=== PATIENT | male | born 1935 | race Caucasian/White ===

== ENCOUNTER → 2016-12-01 | Outpatient (CLI) | payer MEDICARE, OTHER ==
--- NOTE | 2016-12-02 07:38 | XCELERA REPORT ---
[address] [address] Lower Extremity Arterial Evaluation Name: JOSE C JUSTICE Age: 81 yrs Gender: Male : 1935 Patient Status: Outpatient Patient Location: Study Date: 12/01/2016 03:11 PM Procedure: A color flow and duplex scan of the lower extremity arteries was performed bilaterally with velocity and waveform anaylsis. Ankle brachial indicies performed. Reason For Study: ULCER Ordering Physician: DREW WINTER Performed By: Ti Red Measurements and Calculations Right Left FIREARMS MODEL MAKER PSV 105.3 107.5 cm/sec Prox PFA PSV -51.5 -65.0 cm/sec Dist SFA PSV -85.0 -78.6 cm/sec Prox Pop A PSV 94.3 85.9 cm/sec Dist XIMENA PSV 103.7 70.2 cm/sec Dist FORGE PRESS OPERATOR PSV 85.9 56.9 cm/sec Francisco Pedis PSV 102.6 80.8 cm/sec Right Side Arterial Evaluation Normal velocity, waveform and triphasic flow are present, from the Common Femoral artery down to the infrageniculate vessels. The ankle-brachial index was not obtained, non compresible. 0 % stenosis is noted. Left Side Arterial Evaluation Normal velocity, waveform and triphasic flow are present, from the Common Femoral artery down to the infrageniculate vessels. The ankle-brachial index was not obtained, non compresible. 0 % stenosis is noted. Interpretation Summary No hemodynamically significant lesions in the bilateral lower extremities, on duplex imaging, at rest. : DREW WINTER > Drew Winter
== END ==
LOC: SP 14:50
PROVIDERS: ATTEND Surgery
DX: L97.513 Non-pressure chronic ulcer of other part of right foot with necrosis of muscle (principal)
CPT/HCPCS: 93925

== ENCOUNTER 2017-04-23 05:20 | Day surgery (SDC) | payer MEDICARE, OTHER ==
[2017-04-21 12:20] LABS: ABSOLUTE BASOPHILS # (AUTO) 0.1 10^3/uL (0.0-0.2); ABSOLUTE EOSINOPHILS # (AUTO) 0.1 10^3/uL (0.0-0.6); ABSOLUTE LYMPHOCYTES (AUTO) 1.8 10^3/uL (0.5-4.7); ABSOLUTE MONOCYTES (AUTO) 0.5 10^3/uL (0.1-1.4); ABSOLUTE NEUT (AUTO) 4.9 10^3/uL (1.7-8.2); BASOPHILS % (AUTO) 1.3 % (0-2); EOSINOPHILS % (AUTO) 1.7 % (0-6); HEMATOCRIT 42.5 % (37.9-51.0); HGB HCT DIFFERENCE -0.5; LYMPHOCYTES % (AUTO) 24.5 % (13-45); MEAN CORPUSCULAR HEMOGLOBIN 28.4 pg (27.0-33.4); MEAN CORPUSCULAR VOLUME 86 fl (80-97); MONOCYTES % (AUTO) 6.6 % (3-13); RED BLOOD COUNT 4.93 10^6/uL (4.35-5.55); RED CELL DISTRIBUTION WIDTH 17.3 % (11.5-14.0); SEGMENTED NEUTROPHILS % (AUTO) 65.9 % (42-78); WHITE BLOOD COUNT 7.5 10^3/uL (4.0-10.5)
[2017-04-21 12:21] LABS: APPEARANCE,URINE CLEAR; BILIRUBIN,URINE NEGATIVE (NEGATIVE); GLUCOSE, URINE NEGATIVE (NEGATIVE); KETONES,URINE NEGATIVE (NEGATIVE); LEUKOCYTE ESTERASE,URINE NEGATIVE (NEGATIVE); NITRITE,URINE NEGATIVE (NEGATIVE); PROTEIN,URINE NEGATIVE (NEGATIVE); UROBILINOGEN,URINE NEGATIVE mg/dL (<2.0)
[2017-04-21 12:50] LABS: ANION GAP 15 (5-19); BLOOD UREA NITROGEN 25 mg/dL (7-20); CALCIUM 10.1 mg/dL (8.4-10.2); CARBON DIOXIDE 25 mmol/L (22-30); CHLORIDE 103 mmol/L (98-107); CREATININE RESULT 1.16 mg/dL (0.52-1.25); GLUCOSE 246 mg/dL (75-110); POTASSIUM 4.6 mmol/L (3.6-5.0)
--- NOTE | 2017-04-21 16:19 | EKG REPORT ---
SEVERITY:- ABNORMAL ECG - VENTRICULAR-PACED COMPLEXES LEFT ANTERIOR FASCICULAR BLOCK PROBABLE LEFT VENTRICULAR HYPERTROPHY : Confirmed by: Holly Byrnes MD 21-Apr-2017 16:19:04
[~2017-04-23 05:20] MED LIST: CEFAZOLIN 2 GM/D5W RTU 2 GM/50 ML RTUPB IV PRN; LACTATED RINGERS 1000 ML IV PRN; LIDOCAINE 0.5% INJ-PF (5 MG/ML) 50 ML SDV SUBCUT PRN
[2017-04-23 05:59] LABS: PARTIAL THROMBOPLASTIN TIME 33.5 SEC (23.5-35.8); PROTHROMBIN TIME 23.2 SEC (11.4-15.4)
--- NOTE | 2017-04-23 06:31 | RADIOLOGY REPORT (SQ) ---
EXAM DESCRIPTION: CHEST SINGLE VIEW COMPLETED DATE/TIME: 04/23/2017 6:18 am REASON FOR STUDY: surgery COMPARISON: 11/13/2016. EXAM PARAMETERS: NUMBER OF VIEWS: One view. TECHNIQUE: Single frontal radiographic view of the chest acquired. RADIATION DOSE: NA LIMITATIONS: None. FINDINGS: LUNGS AND PLEURA: Mild interstitial markings of the right lung base. Likely small calcifi ed granuloma of the right upper hemithorax. Stable. MEDIASTINUM AND HILAR STRUCTURES: No masses. Contour normal. HEART AND VASCULAR STRUCTURES: Mild enlargement of the cardiac silhouette. BONES: No acute findings. HARDWARE: Left subclavian cardiac stimulation device. Lower cervical hardware fusion. Metallic anch or of the right humeral head. OTHER: No other significant finding. IMPRESSION: No acute cardiopulmonary findings. TECHNICAL DOCUMENTATION: JOB ID: [id number]
[2017-04-23] MEDS ORDERED: BUPIVACAINE HCL 0.5%-EPI 1:200000 INJ/PF 30 ML VIAL ONE (06:53)
[2017-04-23] MEDS ORDERED: FENTANYL CITRATE INJ/PF 100 MCG/2 ML AMPUL ONE (07:19)
[2017-04-23] MEDS ORDERED: PROPOFOL INJ 200 MG/20 ML VIAL IV ONE (07:20)
[2017-04-23] MEDS ORDERED: MIDAZOLAM 2 MG/2 ML INJ ONE (07:20)
--- NOTE | 2017-04-23 08:01 | Operative Report ---
Operative Report DATE OF SURGERY: 04/23/17 PREOPERATIVE DIAGNOSIS: equinas contracture right ankle OPERATION: Right gastrocnemius recession SURGEON: MEÑO GAXIOLA ANESTHESIA: LMAC ESTIMATED BLOOD LOSS: Minimal PROCEDURE: Patient prone on the operating table the right lower extremities prepped and draped in a sterile fashion. At the junction of the middle and distal thirds of the calf the skin is infiltrated posteriorly with a combination of Marcaine, Xylocaine, and epinephrine. A 2-1/2 cm longitudinal incision was made and sharp dissection was carried incision down to the Colon of the gastrocsoleus complex. This was divided. The underlying tendinous portion of the gastroc is identified. Is transected using a 15 blade. The underlying muscle is intact. This results in a dorsiflexion with the bent at 90 sitting from 0 to approximately 20 of dorsiflexion. At this point the wound is irrigated. It is closed with interrupted Vicryl followed by nylon. A sterile dressing and a posterior plaster splint were applied. The plaster splint holding the ankle joint and 20 of dorsiflexion.
[2017-04-23] MEDS ORDERED: ACETAMINOPHEN 325 MG TABLET PO PRN (08:26)
[2017-04-23] MEDS ORDERED: ONDANSETRON 4 MG TAB.RAPDIS SL PRN (08:26)
[2017-04-23 10:51] VITALS: BP 110/67
[2017-04-23] MEDS ORDERED: ONDANSETRON HCL INJ/PF 4 MG/2 ML SDV ONE (12:01)
[2017-04-23] MEDS ORDERED: GLYCOPYRROLATE INJ 0.4 MG/2 ML VIAL ONE (12:01)
== END 2017-04-23 10:30 | disposition home or self-care (01) ==
LOC: OROUT 05:20
PROVIDERS: ATTEND Orthopaedic Surgery
PROC: 0LSN0ZZ Reposition Right Lower Leg Tendon, Open Approach (ICD-10-PCS; principal; 2017-04-23 07:30)
DX: L97.909 Non-pressure chronic ulcer of unspecified part of unspecified lower leg with unspecified severity (principal); M24.571 Contracture, right ankle; E78.00 Pure hypercholesterolemia, unspecified; I10 Essential (primary) hypertension; G62.9 Polyneuropathy, unspecified; I73.9 Peripheral vascular disease, unspecified; M17.11 Unilateral primary osteoarthritis, right knee; M19.90 Unspecified osteoarthritis, unspecified site; E66.9 Obesity, unspecified; Z79.01 Long term (current) use of anticoagulants; Z79.84 Long term (current) use of oral hypoglycemic drugs; Z79.891 Long term (current) use of opiate analgesic; Z86.14 Personal history of Methicillin resistant Staphylococcus aureus infection; Z68.29 Body mass index [BMI] 29.0-29.9, adult; Z96.653 Presence of artificial knee joint, bilateral
CPT/HCPCS: 93005; 86900; 86901; 36415 ×2; 86850; 82962; 85025; 85610; 85730; 80048; 81001; 71010; 93010; 27687; J2250; J3490; J2405; J2704; J0690; 1474; J3010

== ENCOUNTER → 2017-06-25 | Outpatient (CLI) | payer MEDICARE, OTHER ==
--- NOTE | 2017-06-25 16:03 | RADIOLOGY REPORT (SQ) ---
EXAM DESCRIPTION: FOOT RIGHT COMPLETE COMPLETED DATE/TIME: 06/25/2017 3:49 pm REASON FOR STUDY: NON PRESSURE ULCER R FOOT WITH FAT LAYER EXPOSED COMPARISON: 11/08/2016 NUMBER OF VIEWS: Three views. TECHNIQUE: AP, lateral and oblique radiographic images acquired of the right foot. LIMITATIONS: Images are limited secondary to overlying cast. FINDINGS: MINERALIZATION: There is diffuse osteopenia. The phalanges it difficult to evaluate due t o severe osteopenia. BONES: There is no conventional radiographic evidence of osteomyelitis. JOINTS: No effusions. SOFT TISSUES: No soft tissue swelling. No foreign body. OTHER: No other significant finding. IMPRESSION: Very limited study. No conventional radiographic evidence of osteomyelitis. TECHNICAL DOCUMENTATION: JOB ID: [id number] [employer]- All Rights Reserved
== END ==
LOC: RAD 15:17
PROVIDERS: ATTEND Preventive Medicine Undersea and Hyperbaric Medicine
DX: L97.512 Non-pressure chronic ulcer of other part of right foot with fat layer exposed (principal)

== ENCOUNTER → 2017-07-12 | Outpatient (CLI) | payer MEDICARE ==
--- NOTE | 2017-07-12 15:34 | RADIOLOGY REPORT (SQ) ---
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 RADIONUCLIDE AND DOSE: 22.0 millicuries Tc99m MDP. The route of agent administration: Intravenous. ADDITIONAL DRUGS AND DOSES: None. TECHNIQUE: Following injection of the radiopharmaceutical, serial blood flow images acquired. Equil ibrium blood pool images then acquired. Routine delayed images at 3 hour acquired of the areas of cl inical concern with additional focused images as needed. AREA OF INTEREST: Right foot LIMITATIONS: None. FINDINGS: VASCULAR FLOW IMAGES: Increased uptake right great toe. BLOOD POOL IMAGES: Increased uptake right great toe. BONES: Increased uptake right great toe. Milder increased uptake in the mid and hindfoot consistent with degenerative change. KIDNEYS: Kidneys not imaged. OTHER: No other significant finding. IMPRESSION: Positive 3 phase bone scan right great toe. COMMENT: Quality measure 147: Current bone scan is compared with any available plain radiographs, p rior bone scans, and CT/MRI. TECHNICAL DOCUMENTATION: JOB ID: [id number] [employer]- All Rights Reserved
== END ==
LOC: RAD 11:06
PROVIDERS: ATTEND Preventive Medicine Undersea and Hyperbaric Medicine
DX: E11.621 Type 2 diabetes mellitus with foot ulcer (principal); L97.514 Non-pressure chronic ulcer of other part of right foot with necrosis of bone
CPT/HCPCS: 78315; A9561; Q9969

== ENCOUNTER → 2017-07-15 | Day surgery (SDC) | payer MEDICARE, OTHER ==
[~2017-07-15] MED LIST changes: -CEFAZOLIN 2 GM/D5W RTU 2 GM/50 ML RTUPB IV PRN; -LACTATED RINGERS 1000 ML IV PRN; -LIDOCAINE 0.5% INJ-PF (5 MG/ML) 50 ML SDV SUBCUT PRN; +NORMAL SALINE 10 ML SDV (AFTER EACH USE) IV PRN; +NORMAL SALINE 10 ML SDV (SCHEDULED) IV SCH; +VANCOMYCIN HCL 1,000 MG in DEXTROSE 5%-WATER 250 ML IV ONE; +VANCOMYCIN HCL 1,000 MG in DEXTROSE 5%-WATER 250 ML IV SCH
[2017-07-15 11:57] VITALS: BP 125/71
--- NOTE | 2017-07-15 12:03 | RADIOLOGY REPORT (SQ) ---
EXAM DESCRIPTION: PICC INSERTION; U/S GUIDE FOR VASCULAR ACCESS; FLUORO/CV PLACEMENT COMPLETED DATE/TIME: 07/15/2017 11:37 am REASON FOR STUDY: ACUTE HEMATOGENOUS OSTEOMYELITIS, RIGHT ANKLE AND FOOT (M86.071) M89.071 ALGONEUR ODYSTROPHY, RIGHT ANKLE AND FOOT M86.071 ACUTE HEMATOGENOUS OSTEOMYELITIS, RIGHT ANKLE AND FO COMPARISON: AP chest 11/13/2016, 10/15/2010 FLUOROSCOPY TIME: 4 minutes 50 seconds 1 digital chest radiograph, 1 ultrasound image saved to PACS. TECHNIQUE: Fluoroscopic and ultrasound guided PICC placement. LIMITATIONS: None. PROCEDURE: After written consent and assessment were obtained, the patient was brought into the fluo roscopy room and place supine on the table. Ultrasound was used on the patient's right arm for PICC access. The right arm was prepped and draped in a sterile fashion along with the ultrasound probe. Th e entry site was anesthetized with 3.5 mL of 1% lidocaine. A 21 gauge 7 cm needle was advanced throug h the skin and into the basilic vein under live ultrasound guidance. An ultrasound image was saved t o PACS confirming access site. A .018 guide wire was then inserted through the needle and into the v enous system. The needle was the removed and an 11 blade scalpel was used to make a 1cm skin incision . A 5 fr peel-away sheath was advanced over the wire and into the venous system. A measurement was t hen made using the existing wire and live fluoroscopic guidance. The wire was then removed and the tr immed. The PICC was advanced through the peel-away sheath and into the venous system. The peel-away s malu was removed and the catheter was adhered to the patients arm with a stat lock. The catheter was then aspirated and flushed and a sterile bandage was placed over the access site. A fluoroscopic sp ot image was saved to PACS confirming the catheter tip within the superior vena cava. IMPRESSION: SUCCESSFUL PLACEMENT OF A 5 FR DUAL LUMEN 35 CM PICC IN THE RIGHT BASILIC VEIN. COMMENT: Patient medication list reviewed: Yes- Quality ID# 130:Eligible professional attests to doc umenting in the medical record they obtained, updated, or reviewed the patient's current medications. . Quality ID 145: Final reports for procedures using fluoroscopy that document radiation exposure quincy harlan, or exposure time and number of fluorographic images (if radiation exposure indices are not avail able) Quality ID #76: The patient was prepped and draped using maximum sterile barrier technique including cap, mask, sterile gown, sterile gloves, a large sterile sheet, hand hygiene, and 2% Chlorhexidine fo r cutaneous antisepsis. When ultrasound is used, sterile ultrasound techniques are followed requiring sterile gel and sterile probes. TECHNICAL DOCUMENTATION: JOB ID: [id number] [employer]- All Rights Reserved
== END ==
LOC: RAD 10:36
PROVIDERS: ATTEND Preventive Medicine Undersea and Hyperbaric Medicine
PROC: 05HB33Z Insertion of Infusion Device into Right Basilic Vein, Percutaneous Approach (ICD-10-PCS; principal; 2017-07-15)
DX: M89.071 Algoneurodystrophy, right ankle and foot (principal); M86.071 Acute hematogenous osteomyelitis, right ankle and foot
CPT/HCPCS: 96415; 96365; 36569; 77001; 76937; C1769; J7060; J3370; J1642

== ENCOUNTER → 2017-07-15 | Outpatient (CLI) | payer MEDICARE, OTHER ==
[2017-07-15 10:50] LABS: PROTHROMBIN TIME 24.1 SEC (11.4-15.4)
== END ==
LOC: OD 08:57
PROVIDERS: ATTEND Nurse Practitioner Family
DX: L97.514 Non-pressure chronic ulcer of other part of right foot with necrosis of bone (principal)
CPT/HCPCS: 36415; 85610

== ENCOUNTER → 2017-08-16 | Outpatient (CLI) | payer MEDICARE, OTHER ==
--- NOTE | 2017-08-16 18:03 | RADIOLOGY REPORT (SQ) ---
EXAM DESCRIPTION: FOOT RIGHT COMPLETE COMPLETED DATE/TIME: 08/16/2017 5:09 pm REASON FOR STUDY: NON-PRESSURE ULCER OF OTHER PART OF RIGHT FOOT L97.523 NON- PRS CHRONIC ULCER OTH PRT LEFT FOOT W NECROSIS O L97.222 NON-PRESSURE CHRONIC ULCER OF LEFT CALF W FAT LAYER L97.223 NON-PRESSURE CHRONIC ULCER OF LEFT CALF W NECROSIS O COMPARISON: 11/08/2016 NUMBER OF VIEWS: Three views. TECHNIQUE: AP, lateral and oblique radiographic images acquired of the right foot. LIMITATIONS: The foot is in some type of boot that obscures fine bone detail. FINDINGS: MINERALIZATION: Normal. BONES: No acute fracture or dislocation. No evidence of osteomyelitis. JOINTS: There is subluxation of the 1st metatarsal-phalangeal joint. SOFT TISSUES: No soft tissue swelling. No foreign body. OTHER: No other significant finding. IMPRESSION: Subluxation of the 1st metatarsal-phalangeal joint. There is no evidence of osteomyelitis. TECHNICAL DOCUMENTATION: JOB ID: [id number] [employer]- All Rights Reserved <Electronically signed by BURAK JONES MD in [place]> 08/16/17 1803 [facility]
== END ==
LOC: RAD 16:52
PROVIDERS: ATTEND Preventive Medicine Undersea and Hyperbaric Medicine
DX: E11.621 Type 2 diabetes mellitus with foot ulcer (principal); L97.514 Non-pressure chronic ulcer of other part of right foot with necrosis of bone

== ENCOUNTER 2017-09-11 12:31 | Emergency (ER) | payer MEDICARE, OTHER ==
--- NOTE | 2017-09-11 13:06 | ER Document Report ---
HPI - HPI Patient complains to provider of: Fall early this am Onset: This morning - Onset/Duration: Gradual Quality of pain: No pain Pain Level: 3 Context: 82-year-old male was trying to get off into the bed to go to the bathroom and did not have the boot for his right foot on that he supposed to wear so it slipped and caused him to fall and hit his right shoulder on the dresser. He did not hit his head. No dizziness loss of consciousness nausea or vomiting. Daughter lives next door and he did not want to be seen in the emergency room this morning he wanted to wait after he woke up again to see how it felt and they just brought him in to get an x-ray to make sure it was not broken due to decreased range of motion due to pain. He uses a walker. Lives with his . Associated Symptoms: None Exacerbated by: Movement Relieved by: Denies Similar symptoms previously: No - ROS ROS below otherwise negative: Yes Systems Reviewed and Negative: Yes All other systems reviewed and negative - REPRODUCTIVE Reproductive: DENIES: : - DERM Skin Color: Normal Past Medical History - General Information source: Patient - Social History Smoking Status: Never Smoker Frequency of alcohol use: None Drug Abuse: None Lives with: Spouse/Significant other Family History: Reviewed & Not Pertinent Patient has suicidal ideation: No Patient has homicidal ideation: No - Past Medical History Cardiac Medical History: Reports: Hx Atrial Fibrillation, Hx Hypercholesterolemia, Hx Hypertension Endocrine Medical History: Reports: Hx Diabetes Mellitus Type 2, Hx Hyperthyroidism Renal/ Medical History: Denies: Hx Peritoneal Dialysis Musculoskeltal Medical History: Reports Hx Arthritis - LUIS DANIEL. KNEES Skin Medical History: Reports Hx MRSA Past Surgical History: Reports: Hx Orthopedic Surgery - right knee replacement, Hx Pacemaker - PAPER ON CHART - Immunizations Hx Diphtheria, Pertussis, Tetanus Vaccination: - UNSURE Vertical Provider Document - CONSTITUTIONAL Agree With Documented VS: Yes Exam Limitations: No Limitations General Appearance: No Apparent Distress - INFECTION CONTROL TRAVEL OUTSIDE OF THE [place] IN LAST 30 DAYS: No - HEENT HEENT: Atraumatic, Normocephalic - NECK Neck: Supple - RESPIRATORY Respiratory: Breath Sounds Normal, No Respiratory Distress O2 Sat by Pulse Oximetry: 98 - CARDIOVASCULAR Cardiovascular: Regular Rate, Regular Rhythm - MUSCULOSKELETAL/EXTREMETIES Musculoskeletal/Extremeties: Tender - top of right shoulder at AC joint, anterior prox humerus tender, not dislocated on exam, increased pain with abduction. - NEURO Level of Consciousness: Awake, Alert, Appropriate Motor/Sensory: No Motor Deficit, No Sensory Deficit - DERM Integumentary: Warm Course - Re-evaluation Re-evalutation: 09/11/17 14:31 xray negative, wants a hydrocodone for pain. Here with daughter. - Vital Signs Vital signs: Temp Pulse Resp BP Pulse Ox 97.6 F 50 L 22 H 147/66 H 98 09/11/17 12:49 09/11/17 12:49 09/11/17 12:49 09/11/17 12:49 09/11/17 12:49 Discharge - Discharge Clinical Impression: right shoulder contusion Condition: Good Disposition: HOME, SELF-CARE Instructions: Contusion ([facility]), Oral Narcotic Medication ([facility]) Additional Instructions: pain medication as needed slow range of motion so you don't get frozen shoulder to er any concerns Prescriptions: Hydrocodone Bit/Acetaminophen [Hydrocodon-Acetaminophen 5-325] 1 each PO Q4HP PRN #15 tablet PRN Reason: Referrals: MEÑO GAXIOLA MD [ACTIVE STAFF] - Follow up as needed
--- NOTE | 2017-09-11 13:59 | RADIOLOGY REPORT (SQ) ---
EXAM DESCRIPTION: SHOULDER RIGHT 2 OR MORE VIEWS COMPLETED DATE/TIME: 09/11/2017 1:51 pm REASON FOR STUDY: fall right shoulder pain COMPARISON: None. NUMBER OF VIEWS: Three views. TECHNIQUE: Internal rotation, external rotation, and Y view images acquired of the right shoulder. LIMITATIONS: None. FINDINGS: MINERALIZATION: Normal. BONES: No acute fracture or dislocation. No worrisome bone lesions. JOINTS: No dislocation. VISUALIZED LUNGS AND RIBS: No pneumothorax. No rib fracture. SOFT TISSUES: No radiopaque foreign body. OTHER: Anchoring sutures in the humeral head. IMPRESSION: NEGATIVE STUDY OF THE RIGHT SHOULDER. NO RADIOGRAPHIC EVIDENCE OF ACUTE INJURY. TECHNICAL DOCUMENTATION: JOB ID: [id number] [employer]- All Rights Reserved
[2017-09-11] MEDS ORDERED: HYDROCODONE/ACETAMINOPHEN 5-325 MG TABLET PO ONE (14:27)
[2017-09-11 14:57] VITALS: BP 145/64
== END 2017-09-11 14:56 | disposition home or self-care (01) ==
LOC: ER 12:31
DX: S40.011A Contusion of right shoulder, initial encounter (principal); M25.511 Pain in right shoulder; W19.XXXA Unspecified fall, initial encounter; Y92.002 Bathroom of unspecified non-institutional (private) residence as the place of occurrence of the external cause
CPT/HCPCS: 99283; 73030; A9270

== ENCOUNTER → 2017-09-29 | Outpatient (CLI) | payer MEDICARE, OTHER ==
[2017-09-29 10:41] LABS: PROTHROMBIN TIME 36.9 SEC (11.4-15.4)
== END ==
LOC: OD 09:47
PROVIDERS: ATTEND Internal Medicine
DX: I48.91 Unspecified atrial fibrillation (principal); Z79.01 Long term (current) use of anticoagulants
CPT/HCPCS: 36415; 85610

== ENCOUNTER → 2017-10-13 | Outpatient (CLI) | payer MEDICARE, OTHER ==
[2017-10-13 12:01] LABS: PROTHROMBIN TIME 30.7 SEC (11.4-15.4)
== END ==
LOC: OD 10:20
PROVIDERS: ATTEND Internal Medicine
DX: I48.91 Unspecified atrial fibrillation (principal); Z79.01 Long term (current) use of anticoagulants
CPT/HCPCS: 36415; 85610

== ENCOUNTER 2017-10-26 11:13 | Emergency (ER) | payer MEDICARE, OTHER ==
--- NOTE | 2017-10-26 11:29 | ER Document Report ---
ED Medical Screen (RME) - General Chief Complaint: General Weakness Stated Complaint: WEAKNESS Time Seen by Provider: 10/26/17 11:25 Notes: 82-year-old male patient with diabetes was put on Levaquin and Septra on 2016. Since then he developed diarrhea and weakness. Last night about 1:30 in the morning he fell without injury but his complaint of increasing weakness. He reports that he has not been able to eat much recently. I have greeted and performed a rapid initial assessment of this patient. A comprehensive ED assessment and evaluation of the patient, analysis of test results and completion of the medical decision making process will be conducted by additional ED providers. TRAVEL OUTSIDE OF THE [place] IN LAST 30 DAYS: No - Related Data Allergies/Adverse Reactions: niacin [From Niaspan] Allergy (Mild, Verified 10/26/17 11:22) hotflashes lasting several hours Past Medical History - Social History Chew tobacco use (# tins/day): No Frequency of alcohol use: None Drug Abuse: None - Past Medical History Cardiac Medical History: Reports: Hx Atrial Fibrillation, Hx Hypercholesterolemia, Hx Hypertension Denies: Hx Coronary Artery Disease, Hx Heart Attack Pulmonary Medical History: Denies: Hx Asthma, Hx Bronchitis, Hx COPD, Hx Pneumonia Neurological Medical History: Denies: Hx Cerebrovascular Accident, Hx Seizures Endocrine Medical History: Reports: Hx Diabetes Mellitus Type 2, Hx Hyperthyroidism Renal/ Medical History: Denies: Hx Peritoneal Dialysis GI Medical History: Denies: Hx Hepatitis, Hx Hiatal Hernia, Hx Ulcer Musculoskeltal Medical History: Reports Hx Arthritis - LUIS DANIEL. KNEES Skin Medical History: Reports Hx MRSA Infectious Medical History: Denies: Hx Hepatitis Past Surgical History: Reports: Hx Orthopedic Surgery - right knee replacement, Hx Pacemaker - PAPER ON CHART. Denies: Hx Open Heart Surgery - Immunizations Hx Diphtheria, Pertussis, Tetanus Vaccination: - UNSURE Physical Exam - Vital signs Vitals: Temp Pulse Resp BP Pulse Ox 97.7 F 54 L 20 108/54 L 100 10/26/17 11:19 10/26/17 11:19 10/26/17 11:19 10/26/17 11:19 10/26/17 11:19 Course - Vital Signs Vital signs: Temp Pulse Resp BP Pulse Ox 97.7 F 54 L 20 108/54 L 100 10/26/17 11:19 10/26/17 11:19 10/26/17 11:19 10/26/17 11:19 10/26/17 11:19
[2017-10-26 12:03] LABS: ABSOLUTE EOSINOPHILS # (AUTO) 0.1 10^3/uL (0.0-0.6); ABSOLUTE LYMPHOCYTES (AUTO) 1.6 10^3/uL (0.5-4.7); ABSOLUTE MONOCYTES (AUTO) 0.5 10^3/uL (0.1-1.4); ABSOLUTE NEUT (AUTO) 5.3 10^3/uL (1.7-8.2); BASOPHILS % (AUTO) 0.4 % (0-2); EOSINOPHILS % (AUTO) 1.3 % (0-6); HEMATOCRIT 38.8 % (37.9-51.0); HEMOGLOBIN 13.1 g/dL (13.5-17.0); HGB HCT DIFFERENCE 0.5; LYMPHOCYTES % (AUTO) 21.2 % (13-45); MEAN CORPUSCULAR HEMOGLOBIN 28.5 pg (27.0-33.4); MEAN CORPUSCULAR HGB CONC 33.6 g/dL (32.0-36.0); MEAN CORPUSCULAR VOLUME 85 fl (80-97); MONOCYTES % (AUTO) 6.3 % (3-13); RED BLOOD COUNT 4.58 10^6/uL (4.35-5.55); RED CELL DISTRIBUTION WIDTH 16.9 % (11.5-14.0); SEGMENTED NEUTROPHILS % (AUTO) 70.8 % (42-78); WHITE BLOOD COUNT 7.5 10^3/uL (4.0-10.5)
[2017-10-26 12:06] LABS: PROTHROMBIN TIME 35.3 SEC (11.4-15.4)
[2017-10-26 12:25] LABS: ALANINE AMINOTRANSFERASE 38 U/L (21-72); ALBUMIN 4.1 g/dL (3.5-5.0); ALKALINE PHOSPHATASE 37 U/L (38-126); ANION GAP 14 (5-19); ASPARTATE AMINO TRANSFERASE 44 U/L (17-59); BILIRUBIN,DIRECT 0.5 mg/dL (0.0-0.4); BILIRUBIN,TOTAL 0.6 mg/dL (0.2-1.3); BLOOD UREA NITROGEN 36 mg/dL (7-20); CALCIUM 9.6 mg/dL (8.4-10.2); CARBON DIOXIDE 22 mmol/L (22-30); CHLORIDE 104 mmol/L (98-107); CREATININE RESULT 1.97 mg/dL (0.52-1.25); GLUCOSE 159 mg/dL (75-110); MAGNESIUM 2.2 mg/dL (1.6-2.3); POTASSIUM 4.5 mmol/L (3.6-5.0); SODIUM 139.7 mmol/L (137-145); TOTAL PROTEIN 7.2 g/dL (6.3-8.2)
[2017-10-26 14:53] LABS: APPEARANCE,URINE SLIGHTLY-CLOUDY; BILIRUBIN,URINE NEGATIVE (NEGATIVE); GLUCOSE, URINE NEGATIVE (NEGATIVE); KETONES,URINE NEGATIVE (NEGATIVE); LEUKOCYTE ESTERASE,URINE NEGATIVE (NEGATIVE); NITRITE,URINE NEGATIVE (NEGATIVE); PROTEIN,URINE NEGATIVE (NEGATIVE); URINE SPECIFIC GRAVITY 1.017; UROBILINOGEN,URINE NEGATIVE mg/dL (<2.0)
[2017-10-26] MEDS ORDERED: NORMAL SALINE 1000 ML 1,000 ML IV ONE (15:08)
--- NOTE | 2017-10-26 15:50 | RADIOLOGY REPORT (SQ) ---
EXAM DESCRIPTION: HAND RIGHT 3 VIEWS COMPLETED DATE/TIME: 10/26/2017 3:36 pm REASON FOR STUDY: fall COMPARISON: None. EXAM PARAMETERS: NUMBER OF VIEWS: Three views. TECHNIQUE: AP, lateral and oblique radiographic images acquired of the right hand. LIMITATIONS: None. FINDINGS: MINERALIZATION: Normal. BONES: No acute fracture or dislocation. No worrisome bone lesions. JOINTS: No effusions. SOFT TISSUES: Small metallic foreign body at the level of the metacarpophalangeal joint of the thumb. OTHER: No other significant finding. IMPRESSION: No acute posttraumatic changes. Age-appropriate osteoarthritic involvement. TECHNICAL DOCUMENTATION: JOB ID: [id number] [employer]- All Rights Reserved
--- NOTE | 2017-10-26 15:51 | RADIOLOGY REPORT (SQ) ---
EXAM DESCRIPTION: SHOULDER RIGHT 2 OR MORE VIEWS COMPLETED DATE/TIME: 10/26/2017 3:36 pm REASON FOR STUDY: fall COMPARISON: None. NUMBER OF VIEWS: Three views. TECHNIQUE: Internal rotation, external rotation, and Y view images acquired of the right shoulder. LIMITATIONS: None. FINDINGS: MINERALIZATION: Normal. BONES: No acute fracture or dislocation. No worrisome bone lesions. JOINTS: No dislocation. VISUALIZED LUNGS AND RIBS: No pneumothorax. No rib fracture. SOFT TISSUES: No radiopaque foreign body. OTHER: Hardware projected over the humeral head most likely related to repair of previous rotator cuf f tear. IMPRESSION: No acute posttraumatic changes. TECHNICAL DOCUMENTATION: JOB ID: [id number] [employer]- All Rights Reserved
--- NOTE | 2017-10-26 16:12 | ER Document Report ---
ED General - General Chief Complaint: General Weakness Stated Complaint: WEAKNESS Time Seen by Provider: 10/26/17 11:25 Information source: Patient, Relative - Patient's daughter TRAVEL OUTSIDE OF THE [place] IN LAST 30 DAYS: No - HPI Patient complains to provider of: Fall, weakness Onset: Yesterday Onset/Duration: Gradual Quality of pain: Sharp Severity: Mild Pain Level: 2 Context: Right shoulder Associated symptoms: Diarrhea, Weakness Exacerbated by: Denies Relieved by: Denies Similar symptoms previously: Yes Recently seen / treated by doctor: Yes - Placed on Levaquin and Bactrim week ago Notes: She is an 82-year-old male who presents emergency to department company by his daughter. Has had a cast to his right lower extremity for the past year. He has a ulcer that has been debrided on multiple occasions and every he has the cast removed the wound was debrided in a new cast placed. He states that recently he was placed on Levaquin and Bactrim and he developed diarrhea. Also had decreased appetite. Last evening he got up to go to the bathroom and he was dizzy and he fell landing on his left leg area and is back on the hardwood floor after slipping. Patient lives with his his daughter and her live next door. Patient sees Dr. Grullon, Dr. Bernard, Dr. Gambino. - Related Data Allergies/Adverse Reactions: niacin [From Niaspan] Allergy (Mild, Verified 10/26/17 11:22) hotflashes lasting several hours Past Medical History - General Information source: Patient, Relative - Patient's daughter - Social History Smoking Status: Never Smoker Chew tobacco use (# tins/day): No Frequency of alcohol use: None Drug Abuse: None Family History: Reviewed & Not Pertinent Patient has suicidal ideation: No Patient has homicidal ideation: No - Past Medical History Cardiac Medical History: Reports: Hx Atrial Fibrillation, Hx Hypercholesterolemia, Hx Hypertension Denies: Hx Coronary Artery Disease, Hx Heart Attack Pulmonary Medical History: Denies: Hx Asthma, Hx Bronchitis, Hx COPD, Hx Pneumonia Neurological Medical History: Denies: Hx Cerebrovascular Accident, Hx Seizures Endocrine Medical History: Reports: Hx Diabetes Mellitus Type 2, Hx Hyperthyroidism Renal/ Medical History: Denies: Hx Peritoneal Dialysis GI Medical History: Denies: Hx Hepatitis, Hx Hiatal Hernia, Hx Ulcer Musculoskeltal Medical History: Reports Hx Arthritis - LUIS DANIEL. KNEES Skin Medical History: Reports Hx MRSA Psychiatric Medical History: Reports: None Infectious Medical History: Denies: Hx Hepatitis Past Surgical History: Reports: Hx Orthopedic Surgery - right knee replacement, Hx Pacemaker - PAPER ON CHART. Denies: Hx Open Heart Surgery - Immunizations Hx Diphtheria, Pertussis, Tetanus Vaccination: - UNSURE Hx Pneumococcal Vaccination: 08/15/17 Review of Systems - Review of Systems Constitutional: Weakness EENT: No symptoms reported Cardiovascular: No symptoms reported Respiratory: No symptoms reported Gastrointestinal: Diarrhea Genitourinary: No symptoms reported Male Genitourinary: No symptoms reported Musculoskeletal: Other - Right shoulder pain right hand pain Skin: No symptoms reported Hematologic/Lymphatic: No symptoms reported Neurological/Psychological: No symptoms reported Physical Exam - Vital signs Vitals: Temp Pulse Resp BP Pulse Ox 97.7 F 54 L 20 108/54 L 100 10/26/17 11:19 10/26/17 11:19 10/26/17 11:19 10/26/17 11:19 10/26/17 11:19 - Notes Notes: PHYSICAL EXAMINATION: GENERAL: Well-appearing, well-nourished. Patient lying in bed no acute distress HEAD: Atraumatic, normocephalic. EYES: Pupils equal round and reactive to light, extraocular movements intact, sclera anicteric, conjunctiva are normal. ENT: Nares patent, oropharynx clear without exudates. Moist mucous membranes. NECK: Normal range of motion, supple without lymphadenopathy LUNGS: Breath sounds clear to auscultation bilaterally and equal. No wheezes rales or rhonchi. HEART: irRegular rate and rhythm ABDOMEN: Soft, nontender, nondistended abdomen. No guarding, no rebound. No masses appreciated. Musculoskeletal: Decreased range of motion right shoulder secondary to discomfort. Patient does have an old scar there although he denies prior surgery . no pitting or edema. No cyanosis. Right lower extremity in a boot up to midcalf NEUROLOGICAL: Cranial nerves grossly intact. Normal speech, normal gait. Normal sensory, motor exams PSYCH: Normal mood, normal affect. SKIN: Warm, Dry, normal turgor, no rashes or lesions noted. Healed scar right cheek where patient had a basal cell carcinoma removed via the Mohs procedure. Course - Re-evaluation Re-evalutation: 12/12/17 16:22 Orthostatics negative - Vital Signs Vital signs: Temp Pulse Resp BP Pulse Ox 97.7 F 50 L 20 145/66 H 100 10/26/17 11:19 10/26/17 16:14 10/26/17 11:19 10/26/17 16:14 10/26/17 11:19 - Laboratory Result Diagrams: 10/26/17 11:45 10/26/17 11:45 Laboratory results interpreted by me: 10/26/17 10/26/17 10/26/17 11:45 11:45 11:45 Hgb 13.1 L RDW 16.9 H PT 35.3 H BUN 36 H Creatinine 1.97 H Est GFR ( Amer) 39 L Est GFR (Non-Af Amer) 33 L Glucose 159 H Direct Bilirubin 0.5 H Alkaline Phosphatase 37 L Urine Ascorbic Acid 10/26/17 14:22 Hgb RDW PT BUN Creatinine Est GFR ( Amer) Est GFR (Non-Af Amer) Glucose Direct Bilirubin Alkaline Phosphatase Urine Ascorbic Acid 40 H - Diagnostic Test Radiology reviewed: Image reviewed, Reports reviewed Radiology results interpreted by me: 10/26/17 16:22 negative acute for right shoulder and right hand. +OA - EKG Interpretation by Me Additional EKG results interpreted by me: 10/26/17 16:39 EKG shows ventricular paced complexes at a rate of 54 Discharge - Discharge Clinical Impression: Dehydration, Anticoagulated on Coumadin, Diarrhea Condition: Stable Disposition: HOME, SELF-CARE Additional Instructions: Follow-up with your slate worker tomorrow as scheduled. Please bring the copy of the labs that we did today to show to your slate worker. Please increase your water intake as you are slightly dehydrated. Hold your 2.5 mg of Coumadin tonight. Call your doctor who prescribes this tomorrow to establish a follow-up plan. Referrals: ANDREEA CROWELL MD [Primary Care Provider] - Follow up in 3-5 days
[2017-10-26 17:25] VITALS: BP 127/75
--- NOTE | 2017-10-26 23:08 | EKG REPORT ---
SEVERITY:- ABNORMAL ECG - VENTRICULAR-PACED COMPLEXES FIRST DEGREE AV BLOCK IVCD, CONSIDER ATYPICAL RBBB : Confirmed by: Kentrell Vogel 26-Oct-2017 23:08:30
== END 2017-10-26 17:29 | disposition home or self-care (01) ==
LOC: ER 11:13
DX: E86.0 Dehydration (principal); R19.7 Diarrhea, unspecified; R53.1 Weakness; R63.0 Anorexia; M25.511 Pain in right shoulder; M79.641 Pain in right hand; E11.622 Type 2 diabetes mellitus with other skin ulcer; L97.919 Non-pressure chronic ulcer of unspecified part of right lower leg with unspecified severity; I10 Essential (primary) hypertension; I48.91 Unspecified atrial fibrillation; Z79.01 Long term (current) use of anticoagulants; Z98.890 Other specified postprocedural states; Z91.81 History of falling; Z88.8 Allergy status to other drugs, medicaments and biological substances; Z86.14 Personal history of Methicillin resistant Staphylococcus aureus infection; Z95.0 Presence of cardiac pacemaker; Z85.828 Personal history of other malignant neoplasm of skin
CPT/HCPCS: 93005; 99285; 96360; 36415; 80162; 83735; 85025; 85610; 80053; 81001; 84484; 73130; 73030; 93010; J7030

== ENCOUNTER → 2017-11-24 | Outpatient (CLI) | payer MEDICARE, OTHER ==
--- NOTE | 2017-11-24 16:59 | RADIOLOGY REPORT (SQ) ---
EXAM DESCRIPTION: FOOT RIGHT COMPLETE COMPLETED DATE/TIME: 11/24/2017 4:18 pm REASON FOR STUDY: L97.514 NON-PRS CHRONIC ULCER OTH PRT RIGHT FOOT W NECROSIS OF BONE L97.514 NON-P RS CHRONIC ULCER OTH PRT RIGHT FOOT W NECROSIS COMPARISON: 08/16/2017 NUMBER OF VIEWS: Three views. TECHNIQUE: AP, lateral and oblique without weight bearing radiographic images acquired of the right foot. LIMITATIONS: Cast is in place which limits bony detail. FINDINGS: MINERALIZATION: Unchanged. There is mild osteopenia. BONES: There is subluxation of the 1st metatarsal phalangeal joint. This is unchanged. No significan t osteophytes. JOINTS: No erosions. No bakari-articular osteopenia. No chondrocalcinosis. SOFT TISSUES: No swelling. No calcifications. OTHER: No conventional radiographic evidence of osteomyelitis. IMPRESSION: Stable right foot. Cast limits bone detail. There is subluxation of the 1st metatarsal phalangeal joint. TECHNICAL DOCUMENTATION: JOB ID: [id number] [employer]- All Rights Reserved
== END ==
LOC: RAD 15:06
PROVIDERS: ATTEND Preventive Medicine Undersea and Hyperbaric Medicine
DX: L97.514 Non-pressure chronic ulcer of other part of right foot with necrosis of bone (principal)

== ENCOUNTER → 2017-12-15 | Outpatient (CLI) | payer MEDICARE, OTHER ==
[2017-12-15 11:17] LABS: HEMATOCRIT 39.1 % (37.9-51.0); MEAN CORPUSCULAR HEMOGLOBIN 28.2 pg (27.0-33.4); MEAN CORPUSCULAR HGB CONC 33.2 g/dL (32.0-36.0); MEAN CORPUSCULAR VOLUME 85 fl (80-97); PLATELET COUNT 166 10^3/uL (150-450); RED CELL DISTRIBUTION WIDTH 16.4 % (11.5-14.0)
[2017-12-15 11:57] LABS: ERYTHROCYTE SEDIMENTATION RATE 12 mm/hr (0-20)
[2017-12-15 11:59] LABS: ALANINE AMINOTRANSFERASE 39 U/L (21-72); ALBUMIN 4.1 g/dL (3.5-5.0); ALKALINE PHOSPHATASE 40 U/L (38-126); ANION GAP 11 (5-19); ASPARTATE AMINO TRANSFERASE 69 U/L (17-59); BILIRUBIN,DIRECT 0.6 mg/dL (0.0-0.4); BILIRUBIN,TOTAL 0.8 mg/dL (0.2-1.3); BLOOD UREA NITROGEN 26 mg/dL (7-20); C-REACTIVE PROTEIN 5.9 mg/L (<10.0); CALCIUM 9.8 mg/dL (8.4-10.2); CARBON DIOXIDE 26 mmol/L (22-30); CHLORIDE 106 mmol/L (98-107); GLUCOSE 139 mg/dL (75-110); POTASSIUM 4.7 mmol/L (3.6-5.0)
== END ==
LOC: OD 09:31
PROVIDERS: ATTEND Preventive Medicine Undersea and Hyperbaric Medicine
DX: E11.621 Type 2 diabetes mellitus with foot ulcer (principal); L97.514 Non-pressure chronic ulcer of other part of right foot with necrosis of bone
CPT/HCPCS: 36415; 80053; 85027; 85652; 86140

== ENCOUNTER → 2018-03-02 | Outpatient (CLI) | payer MEDICARE, OTHER ==
--- NOTE | 2018-03-02 12:36 | RADIOLOGY REPORT (SQ) ---
EXAM DESCRIPTION: FOOT RIGHT COMPLETE COMPLETED DATE/TIME: 03/02/2018 12:19 pm REASON FOR STUDY: E11.621 TYPE 2 DIABETES MELLITUS WITH FOOT ULCER COMPARISON: 11/24/2017. NUMBER OF VIEWS: Three views right foot. LIMITATIONS: Significantly limiting osteopenia. FINDINGS: Diffuse patchy osteopenia throughout the foot. No displaced fracture. On the lateral vie w, note is made of flattening and erosion of 1 of the inferior metatarsal heads. This is likely the great toe, likely chronic but difficult to further localize or compared to the priors. No other area s of bone erosion. OTHER: No other significant finding. IMPRESSION: As above. TECHNICAL DOCUMENTATION: JOB ID: [id number] Reading location - IP/workstation name: [email or web address]
[2018-03-02 13:03] LABS: ABSOLUTE BASOPHILS # (AUTO) 0.1 10^3/uL (0.0-0.2); ABSOLUTE EOSINOPHILS # (AUTO) 0.2 10^3/uL (0.0-0.6); ABSOLUTE LYMPHOCYTES (AUTO) 1.7 10^3/uL (0.5-4.7); ABSOLUTE MONOCYTES (AUTO) 0.5 10^3/uL (0.1-1.4); ABSOLUTE NEUT (AUTO) 5.6 10^3/uL (1.7-8.2); BASOPHILS % (AUTO) 1.1 % (0-2); EOSINOPHILS % (AUTO) 2.2 % (0-6); HEMATOCRIT 39.4 % (37.9-51.0); HEMOGLOBIN 12.8 g/dL (13.5-17.0); LYMPHOCYTES % (AUTO) 20.8 % (13-45); MEAN CORPUSCULAR HEMOGLOBIN 27.6 pg (27.0-33.4); MEAN CORPUSCULAR HGB CONC 32.6 g/dL (32.0-36.0); MEAN CORPUSCULAR VOLUME 85 fl (80-97); MONOCYTES % (AUTO) 6.1 % (3-13); PLATELET COUNT 188 10^3/uL (150-450); RED BLOOD COUNT 4.65 10^6/uL (4.35-5.55); RED CELL DISTRIBUTION WIDTH 16.3 % (11.5-14.0); SEGMENTED NEUTROPHILS % (AUTO) 69.8 % (42-78); TOTAL CELLS COUNTED % (AUTO) 100 %
[2018-03-02 13:26] LABS: ALBUMIN 3.9 g/dL (3.5-5.0); ANION GAP 12 (5-19); CARBON DIOXIDE 26 mmol/L (22-30); CHLORIDE 108 mmol/L (98-107); GLUCOSE 156 mg/dL (75-110); POTASSIUM 4.4 mmol/L (3.6-5.0); SODIUM 145.6 mmol/L (137-145); TOTAL PROTEIN 6.6 g/dL (6.3-8.2)
[2018-03-02 13:31] LABS: ALANINE AMINOTRANSFERASE 33 U/L (21-72); ALKALINE PHOSPHATASE 32 U/L (38-126); ASPARTATE AMINO TRANSFERASE 31 U/L (17-59); BILIRUBIN,DIRECT 0.4 mg/dL (0.0-0.4); BILIRUBIN,TOTAL 0.7 mg/dL (0.2-1.3); BLOOD UREA NITROGEN 27 mg/dL (7-20); CALCIUM 9.8 mg/dL (8.4-10.2)
[2018-03-02 13:34] LABS: C-REACTIVE PROTEIN < 5.0 mg/L (<10.0)
[2018-03-02 13:40] LABS: ERYTHROCYTE SEDIMENTATION RATE 13 mm/hr (0-20)
== END ==
LOC: RAD 11:58
PROVIDERS: ATTEND Preventive Medicine Undersea and Hyperbaric Medicine
DX: E11.621 Type 2 diabetes mellitus with foot ulcer (principal); L97.512 Non-pressure chronic ulcer of other part of right foot with fat layer exposed
CPT/HCPCS: 36415; 80053; 83036; 85025; 85652; 86140

== ENCOUNTER 2019-07-19 14:47 | Emergency (ER) | payer MEDICARE, OTHER ==
--- NOTE | 2019-07-19 15:21 | ER Document Report ---
ED General - General Chief Complaint: Fall Stated Complaint: FALL,BODY PAIN Time Seen by Provider: 07/19/19 15:10 Primary Care Provider: ANDREEA CROWELL MD [Primary Care Provider] - Follow up as needed Notes: 84-year-old male who is walking at home and fell backwards from a standing position and hit the back of his head. Denies vomiting, denies loss of consciousness, denies numbness, tingling, confusion. Admits pain in his neck. Patient does take Coumadin, he is not sure exactly why. Patient also takes digoxin. TRAVEL OUTSIDE OF THE [place] IN LAST 30 DAYS: No - Related Data Allergies/Adverse Reactions: niacin [From Niaspan] Allergy (Mild, Verified 10/26/17 11:22) hotflashes lasting several hours Past Medical History - General Information source: Patient - Social History Smoking Status: Never Smoker Chew tobacco use (# tins/day): No Frequency of alcohol use: None Drug Abuse: None Family History: Reviewed & Not Pertinent Patient has suicidal ideation: No Patient has homicidal ideation: No - Past Medical History Cardiac Medical History: Reports: Hx Atrial Fibrillation, Hx Hypercholesterolemia, Hx Hypertension Denies: Hx Coronary Artery Disease, Hx Heart Attack Pulmonary Medical History: Denies: Hx Asthma, Hx Bronchitis, Hx COPD, Hx Pneumonia Neurological Medical History: Denies: Hx Cerebrovascular Accident, Hx Seizures Endocrine Medical History: Reports: Hx Diabetes Mellitus Type 2, Hx Hyperthyroidism Renal/ Medical History: Denies: Hx Peritoneal Dialysis GI Medical History: Denies: Hx Hepatitis, Hx Hiatal Hernia, Hx Ulcer Musculoskeletal Medical History: Reports Hx Arthritis - LUIS DANIEL. KNEES Skin Medical History: Reports Hx MRSA Infectious Medical History: Denies: Hx Hepatitis Past Surgical History: Reports: Hx Orthopedic Surgery - right knee replacement, Hx Pacemaker - PAPER ON CHART. Denies: Hx Open Heart Surgery - Immunizations Hx Diphtheria, Pertussis, Tetanus Vaccination: - UNSURE Hx Pneumococcal Vaccination: 08/15/17 Review of Systems - Review of Systems Constitutional: No symptoms reported EENT: See HPI - Hit head. Neck pain. Musculoskeletal: See HPI Skin: See HPI - Abrasion to the scalp. -: Yes All other systems reviewed and negative Physical Exam - Vital signs Vitals: Temp Pulse Resp BP 98.1 F 55 L 20 139/61 H 07/19/19 15:10 07/19/19 15:10 07/19/19 15:10 07/19/19 15:10 Interpretation: Normal - Notes Notes: GENERAL: Alert, interacts well. No acute distress. HEAD: Normocephalic, superficial abrasion to the left occiput, small hematoma, no active bleeding. EYES: Pupils equal, round and reactive to light, extraocular movements intact. ENT: Oral mucosa moist, tongue midline. Nares patent, no nasal septal hematoma, TMs intact. NECK: Full range of motion, supple, trachea midline. No midline bony tenderness palpation. LUNGS: Clear to auscultation bilaterally, no wheezes, rales or rhonchi, no respiratory distress. HEART: Regular rate and rhythm, no murmurs, gallops, rubs. ABDOMEN: Soft, nontender, nondistended, bowel sounds present in all 4 quadrants. EXTREMITIES: Moves all 4 extremities spontaneously, no edema, radial and dorsalis pedis pulses 2/4 bilaterally. No cyanosis. NEUROLOGICAL: Alert and oriented x3, normal speech, cranial nerves II through XII grossly intact, biceps and patellar DTRs 2+ bilaterally. PSYCH: Normal mood, normal affect. SKIN: Warm, Dry, normal turgor, no rashes or lesions noted. Course - Re-evaluation Re-evalutation: 07/19/19 17:19 CBC shows anemia with hemoglobin 11.4 platelets of 144, CMP grossly unremarkable, digoxin level low at 0.53. CT scan of the head and cervical spine are unremarkable for any acute process. - Vital Signs Vital signs: Temp Pulse Resp BP Pulse Ox 98.1 F 55 L 20 139/61 H 07/19/19 15:10 07/19/19 15:10 07/19/19 15:10 07/19/19 15:10 - Laboratory Result Diagrams: 07/19/19 15:00 07/19/19 15:00 Laboratory results interpreted by me: 07/19/19 07/19/19 15:00 15:00 RBC 4.18 L Hgb 11.4 L Hct 34.8 L RDW 20.1 H Plt Count 144 L Chloride 108 H BUN 27 H Direct Bilirubin 0.5 H Alkaline Phosphatase 34 L Digoxin 0.53 L Discharge - Discharge Clinical Impression: Subtherapeutic digoxin level Fall at home Qualifiers: Encounter type: initial encounter Qualified Code(s): W19.XXXA - Unspecified fall, initial encounter; Y92.009 - Unspecified place in unspecified non- institutional (private) residence as the place of occurrence of the external cause Abrasion of occiput Qualifiers: Encounter type: initial encounter Qualified Code(s): S00.01XA - Abrasion of scalp, initial encounter Condition: Stable Disposition: HOME, SELF-CARE Additional Instructions: Head Injury Precautions At this point, there is no evidence that your head injury is serious. Observation is necessary, however. Take only clear liquids for the first few hours, unless told otherwise by the doctor. If no pain medication was prescribed, you may take acetaminophen according to the directions on the bottle. Do not take any medication that may alter your level of alertness (unless you've discussed it with the doctor first). Limit activity for the first 24 hours. Bed rest is best. During the first 24 hours, check to see approximately every two to three hours that the patient is easily arousable, responds normally, and can perform common tasks such as walking without difficulty. Contact your doctor or go to the hospital if any of the following things occur: Persistent vomiting, difficulty in arousing the patient, worsening or continued headache, or failure to improve as expected. Head injuries can cause symptoms that persist for a few days or even a few weeks. Please avoid sedating medications. You may take acetaminophen for headache. Your digoxin level was low today it was 0.53. Please discuss this with your end packer and primary care physician. We gave you a tetanus shot today. Referrals: ANDREEA CROWELL MD [Primary Care Provider] - Follow up as needed
[2019-07-19 16:02] LABS: ABSOLUTE BASOPHILS # (AUTO) 0.1 10^3/uL (0.0-0.2); ABSOLUTE EOSINOPHILS # (AUTO) 0.2 10^3/uL (0.0-0.6); ABSOLUTE LYMPHOCYTES (AUTO) 1.5 10^3/uL (0.5-4.7); ABSOLUTE MONOCYTES (AUTO) 0.5 10^3/uL (0.1-1.4); ABSOLUTE NEUT (AUTO) 4.3 10^3/uL (1.7-8.2); EOSINOPHILS % (AUTO) 2.6 % (0-6); HEMATOCRIT 34.8 % (37.9-51.0); HEMOGLOBIN 11.4 g/dL (13.5-17.0); LYMPHOCYTES % (AUTO) 22.8 % (13-45); MEAN CORPUSCULAR HEMOGLOBIN 27.3 pg (27.0-33.4); MEAN CORPUSCULAR HGB CONC 32.8 g/dL (32.0-36.0); MEAN CORPUSCULAR VOLUME 83 fl (80-97); MONOCYTES % (AUTO) 7.8 % (3-13); PLATELET COUNT 144 10^3/uL (150-450); RED BLOOD COUNT 4.18 10^6/uL (4.35-5.55); RED CELL DISTRIBUTION WIDTH 20.1 % (11.5-14.0); SEGMENTED NEUTROPHILS % (AUTO) 65.8 % (42-78); TOTAL CELLS COUNTED % (AUTO) 100 %; WHITE BLOOD COUNT 6.5 10^3/uL (4.0-10.5)
[2019-07-19 16:12] LABS: ALBUMIN 3.9 g/dL (3.5-5.0); ALKALINE PHOSPHATASE 34 U/L (38-126); ANION GAP 8 (5-19); ASPARTATE AMINO TRANSFERASE 25 U/L (17-59); BILIRUBIN,DIRECT 0.5 mg/dL (0.0-0.4); BLOOD UREA NITROGEN 27 mg/dL (7-20); CALCIUM 9.7 mg/dL (8.4-10.2); CARBON DIOXIDE 25 mmol/L (22-30); CHLORIDE 108 mmol/L (98-107); DIGOXIN 0.53 ng/mL (0.8-2.0); GLUCOSE 110 mg/dL (75-110); POTASSIUM 4.1 mmol/L (3.6-5.0)
--- NOTE | 2019-07-19 16:18 | RADIOLOGY REPORT (SQ) ---
EXAM DESCRIPTION: CT HEAD WITHOUT COMPLETED DATE/TIME: 07/19/2019 4:09 pm REASON FOR STUDY: fall, on coumadin COMPARISON: March 2016 TECHNIQUE: Axial images acquired through the brain without intravenous contrast. Images reviewed wi th bone, brain and subdural windows. Additional sagittal and coronal reconstructions were generated. Images stored on PACS. All CT scanners at this facility use dose modulation, iterative reconstruction, and/or weight based d osing when appropriate to reduce radiation dose to as low as reasonably achievable (ALARA). [facility]: Dose Right [facility]: CareDose [facility]: Dose Right [facility]: Teradose 4D [facility]: Optimus3 RADIATION DOSE: CT Rad equipment meets quality standard of care and radiation dose reduction techniq ues were employed. CTDIvol: 53.2 mGy. DLP: 1097 mGy-cm.mGy. LIMITATIONS: None. FINDINGS: VENTRICLES: Prominent. CEREBRUM: No masses. No hemorrhage. No midline shift. Areas of low density in the white matter mos t likely due to chronic micro-vascular ischemic change. No evidence for acute infarction. CEREBELLUM: No masses. No hemorrhage. No alteration of density. No evidence for acute infarction. EXTRAAXIAL SPACES: Age-related involutional change. No fluid collections. No masses. ORBITS AND GLOBE: No intra- or extraconal masses. Normal contour of globe without masses. CALVARIUM: No fracture. PARANASAL SINUSES: No fluid or mucosal thickening. SOFT TISSUES: No mass or hematoma. OTHER: No other significant finding. IMPRESSION: CHRONIC CHANGES OF ATROPHY AND MICROVASCULAR ISCHEMIA. NO ACUTE PROCESS. EVIDENCE OF ACUTE STROKE: NO. TECHNICAL DOCUMENTATION: JOB ID: [id number] Quality ID # [id number]: Final reports with documentation of one or more dose reduction techniques (e.g., Au tomated exposure control, adjustment of the mA and/or kV according to patient size, use of iterative reconstruction technique) 2010 [employer]- All Rights Reserved Reading location - IP/workstation name: [email or web address]
--- NOTE | 2019-07-19 16:19 | RADIOLOGY REPORT (SQ) ---
EXAM DESCRIPTION: CT CERVICAL SPINE WITHOUT COMPLETED DATE/TIME: 07/19/2019 4:09 pm REASON FOR STUDY: fall, on coumadin COMPARISON: None. TECHNIQUE: Axial images acquired through the cervical spine without intravenous contrast. Images re viewed with lung, soft tissue and bone windows. Reconstructed coronal and sagittal MPR images review ed. Images stored on PACS. All CT scanners at this facility use dose modulation, iterative reconstruction, and/or weight based d osing when appropriate to reduce radiation dose to as low as reasonably achievable (ALARA). [facility]: Dose Right [facility]: CareDose [facility]: Dose Right [facility]: Teradose 4D [facility]: [employer] RADIATION DOSE: CT Rad equipment meets quality standard of care and radiation dose reduction techniq ues were employed. CTDIvol: 18.2 mGy. DLP: 365 mGy-cm. mGy. LIMITATIONS: None. FINDINGS: ALIGNMENT: Anatomic. MINERALIZATION: Normal. VERTEBRAL BODIES: No fractures or dislocation. DISCS: Multilevel disc space narrowing with osteophytes. FACETS, LATERAL MASSES, POSTERIOR ELEMENTS: Facet arthropathy. No fractures. No dislocation. No ac tal findings. HARDWARE: Anterior fusion from C3 through C5. VISUALIZED RIBS: No fractures. LUNG APICES AND SOFT TISSUES: No significant or acute findings. OTHER: No other significant finding. IMPRESSION: CHRONIC DEGENERATIVE CHANGES. NO ACUTE FINDINGS. TECHNICAL DOCUMENTATION: JOB ID: [id number] Quality ID # [id number]: Final reports with documentation of one or more dose reduction techniques (e.g., Au tomated exposure control, adjustment of the mA and/or kV according to patient size, use of iterative reconstruction technique) 2010 [employer]- All Rights Reserved Reading location - IP/workstation name: [email or web address]
[2019-07-19] MEDS ORDERED: DIPH/PERTUSS(ACELL)/TETANUS VAC/PF 0.5 ML SYR (>=10YO) IM ONE (17:20)
[2019-07-19 18:04] VITALS: BP 145/81
--- NOTE | 2019-07-20 14:23 | EKG REPORT ---
SEVERITY:- ABNORMAL ECG - VENTRICULAR-PACED COMPLEXES NONSPECIFIC IVCD WITH LAD LVH WITH SECONDARY REPOLARIZATION ABNORMALITY A FIB : Confirmed by: Kentrell Vogel 20-Jul-2019 14:21:57
== END 2019-07-19 18:04 | disposition home or self-care (01) ==
LOC: ER 14:47
DX: S00.03XA Contusion of scalp, initial encounter (principal); M54.9 Dorsalgia, unspecified; M54.2 Cervicalgia; W19.XXXA Unspecified fall, initial encounter; Y93.01 Activity, walking, marching and hiking; Y92.009 Unspecified place in unspecified non-institutional (private) residence as the place of occurrence of the external cause; D64.9 Anemia, unspecified; I10 Essential (primary) hypertension; E11.9 Type 2 diabetes mellitus without complications; I48.91 Unspecified atrial fibrillation; Z79.899 Other long term (current) drug therapy; Z79.01 Long term (current) use of anticoagulants; Z88.8 Allergy status to other drugs, medicaments and biological substances; Z95.0 Presence of cardiac pacemaker
CPT/HCPCS: 36415; 70450; 72125; 80053; 80162; 83735; 85025; 90471; 90715; 93005; 93010; 99284

== ENCOUNTER 2019-12-10 17:32 | Emergency (ER) | payer MEDICARE, OTHER ==
--- NOTE | 2019-12-10 18:11 | ER Document Report ---
ED Medical Screen (RME) - General Chief Complaint: Fall Injury Stated Complaint: FALL/HEAD, RIGHT ELBOW INJURY Time Seen by Provider: 12/10/19 17:56 Primary Care Provider: ANDREEA CROWELL MD [Primary Care Provider] - Follow up as needed Notes: Patient is a 84-year-old male with a history of type 2 diabetes, hypertension, A. fib, AICD who presents emergency department with a chief complaint of head injury. Family member reports around 5:30 PM this afternoon he was ambulating to the restroom when he slipped on a wet spot and fell. He reports striking the right side of his head on what he believes was the door. Patient denies loss of consciousness. Family member reports he does have neuropathy in both of his feet. Patient reports he did get a skin tear to his right elbow but is not currently have any right elbow pain. Patient denies neck pain. Patient does take Coumadin 2.5 mg daily. Family member reports that the last time the INR was checked it was elevated. TRAVEL OUTSIDE OF THE [place] IN LAST 30 DAYS: No - Related Data Allergies/Adverse Reactions: niacin [From Mister Mario] Allergy (Mild, Verified 10/26/17 11:22) hotflashes lasting several hours Home Medications: Carvedilol, Warfarin, Atorvastatin, Digoxin, Levothyroxine, Glipizide, Escitalopram Past Medical History - Past Medical History Cardiac Medical History: Reports: Hx Atrial Fibrillation, Hx Hypercholesterolemia, Hx Hypertension Denies: Hx Coronary Artery Disease, Hx Heart Attack Pulmonary Medical History: Denies: Hx Asthma, Hx Bronchitis, Hx COPD, Hx Pneumonia Neurological Medical History: Denies: Hx Cerebrovascular Accident, Hx Seizures Endocrine Medical History: Reports: Hx Diabetes Mellitus Type 2, Hx Hyperthyroidism Renal/ Medical History: Denies: Hx Peritoneal Dialysis GI Medical History: Denies: Hx Hepatitis, Hx Hiatal Hernia, Hx Ulcer Musculoskeltal Medical History: Reports Hx Arthritis - LUIS DANIEL. KNEES Skin Medical History: Reports Hx MRSA Infectious Medical History: Denies: Hx Hepatitis Past Surgical History: Reports: Hx Orthopedic Surgery - right knee replacement, Hx Pacemaker - PAPER ON CHART. Denies: Hx Open Heart Surgery - Immunizations Hx Diphtheria, Pertussis, Tetanus Vaccination: - UNSURE Physical Exam - Vital signs Vitals: Temp Pulse Resp BP Pulse Ox 97.4 F 101 H 14 115/57 L 98 12/10/19 17:45 12/10/19 17:45 12/10/19 17:45 12/10/19 17:45 12/10/19 17:45 Course - Re-evaluation Re-evalutation: 12/10/19 18:10 Patient alert and oriented, patient is acting appropriately per the family member at the bedside. Unable to visualize the left pupil as the patient does have an injury as a child. Right pupil is 3 mm and reactive to light. Patient able to answer questions appropriately. Will obtain a CT of the head to rule out bleed as the patient is on Coumadin. Will obtain basic labs including coags. I have greeted and performed a rapid initial assessment of this patient. A comprehensive ED assessment and evaluation of the patient, analysis of test results and completion of the medical decision making process will be conducted by additional ED providers. - Vital Signs Vital signs: Temp Pulse Resp BP Pulse Ox 97.4 F 101 H 14 115/57 L 98 12/10/19 17:45 12/10/19 17:45 12/10/19 17:45 12/10/19 17:45 12/10/19 17:45 Doctor's Discharge - Discharge Referrals: ANDREEA CROWELL MD [Primary Care Provider] - Follow up as needed
--- NOTE | 2019-12-10 18:40 | RADIOLOGY REPORT (SQ) ---
EXAM DESCRIPTION: CT HEAD WITHOUT COMPLETED DATE/TIME: 12/10/2019 6:28 pm REASON FOR STUDY: fall, head injury, on coumadin COMPARISON: CT head 07/19/2019 TECHNIQUE: Axial images acquired through the brain without intravenous contrast. Images reviewed wi th bone, brain and subdural windows. Additional sagittal and coronal reconstructions were generated. Images stored on PACS. All CT scanners at this facility use dose modulation, iterative reconstruction, and/or weight based d osing when appropriate to reduce radiation dose to as low as reasonably achievable (ALARA). [facility]: Dose Right [facility]: CareDose [facility]: Dose Right [facility]: Teradose 4D [facility]: [employer] RADIATION DOSE: CT Rad equipment meets quality standard of care and radiation dose reduction techniq ues were employed. CTDIvol: 53.2 mGy. DLP: 991 mGy-cm. mGy. LIMITATIONS: None. FINDINGS: VENTRICLES: Prominent ventricles and sulci secondary to involutional atrophy. CEREBRUM: No masses. No hemorrhage. No midline shift. No evidence for acute infarction. Normal gra y/white matter differentiation. No areas of low density in the white matter. CEREBELLUM: No masses. No hemorrhage. No alteration of density. No evidence for acute infarction. EXTRAAXIAL SPACES: No fluid collections. No masses. ORBITS AND GLOBE: No intra- or extraconal masses. Cataract surgery. CALVARIUM: No fracture. PARANASAL SINUSES: No fluid or mucosal thickening. SOFT TISSUES: No mass or hematoma. OTHER: No other significant finding. IMPRESSION: No acute intracranial findings or calvarial fracture. EVIDENCE OF ACUTE STROKE: NO. COMMENT: Quality ID # [id number]: Final reports with documentation of one or more dose reduction techniques (e.g., Automated exposure control, adjustment of the mA and/or kV according to patient size, use of iterative reconstruction technique) TECHNICAL DOCUMENTATION: JOB ID: [id number] [employer]- All Rights Reserved Reading location - IP/workstation name: [email or web address]
[2019-12-10 19:01] LABS: ABSOLUTE BASOPHILS # (AUTO) 0.1 10^3/uL (0.0-0.2); ABSOLUTE EOSINOPHILS # (AUTO) 0.1 10^3/uL (0.0-0.6); ABSOLUTE LYMPHOCYTES (AUTO) 1.2 10^3/uL (0.5-4.7); ABSOLUTE MONOCYTES (AUTO) 0.5 10^3/uL (0.1-1.4); ABSOLUTE NEUT (AUTO) 4.2 10^3/uL (1.7-8.2); BASOPHILS % (AUTO) 0.9 % (0-2); EOSINOPHILS % (AUTO) 1.7 % (0-6); HEMATOCRIT 37.1 % (37.9-51.0); LYMPHOCYTES % (AUTO) 19.3 % (13-45); MEAN CORPUSCULAR HEMOGLOBIN 25.8 pg (27.0-33.4); MEAN CORPUSCULAR HGB CONC 32.4 g/dL (32.0-36.0); MEAN CORPUSCULAR VOLUME 80 fl (80-97); MONOCYTES % (AUTO) 8.3 % (3-13); PLATELET COUNT 196 10^3/uL (150-450); RED BLOOD COUNT 4.66 10^6/uL (4.35-5.55); RED CELL DISTRIBUTION WIDTH 18.1 % (11.5-14.0); SEGMENTED NEUTROPHILS % (AUTO) 69.8 % (42-78); TOTAL CELLS COUNTED % (AUTO) 100 %
[2019-12-10 19:13] LABS: INTERNATIONAL RATION (INR) 1.96; PARTIAL THROMBOPLASTIN TIME 34.6 SEC (23.5-35.8); PROTHROMBIN TIME 22.6 SEC (11.4-15.4)
[2019-12-10 19:22] LABS: ANION GAP 8 (5-19); BLOOD UREA NITROGEN 30 mg/dL (7-20); CALCIUM 9.7 mg/dL (8.4-10.2); CARBON DIOXIDE 29 mmol/L (22-30); CHLORIDE 103 mmol/L (98-107); GLUCOSE 115 mg/dL (75-110); POTASSIUM 4.5 mmol/L (3.6-5.0)
[2019-12-10] MEDS ORDERED: DIPH/PERTUSS(ACELL)/TETANUS VAC/PF 0.5 ML SYR (>=10YO) IM ONE (21:59)
--- NOTE | 2019-12-10 22:04 | ER Document Report ---
ED General - General Chief Complaint: Fall Injury Stated Complaint: FALL/HEAD, RIGHT ELBOW INJURY Time Seen by Provider: 12/10/19 17:56 Primary Care Provider: ANDREEA CROWELL MD [Primary Care Provider] - Follow up as needed TRAVEL OUTSIDE OF THE [place] IN LAST 30 DAYS: No - HPI Notes: Patient is an 84-year-old male who presents to the emergency department for evaluation after a fall. He slipped and fell, striking his head. There is no loss of consciousness. No neck or back pain. The patient has a history of neuropathy and balance issues. He supposed to walk with a cane or walker, admits that he does not do that frequently. His INR was elevated last time he had it checked, he has had some changes in his Coumadin dosages lately. Otherwise, he is also had a cough. Is been present for about 10 days. No fevers or chills. No shortness of breath. He was seen by his primary care provider in regards to this cough a few days ago, but it seems to have only gotten worse. Patient really states he does not have any pain at all at this time. He is unsure as to when his last tetanus shot was. - Related Data Allergies/Adverse Reactions: niacin [From Niaspan] Allergy (Mild, Verified 10/26/17 11:22) hotflashes lasting several hours Home Medications: Carvedilol, Warfarin, Atorvastatin, Digoxin, Levothyroxine, Glipizide, Escitalopram Past Medical History - General Information source: Patient, Relative - Social History Smoking Status: Unknown if Ever Smoked Family History: Reviewed & Not Pertinent Patient has suicidal ideation: No Patient has homicidal ideation: No - Past Medical History Cardiac Medical History: Reports: Hx Atrial Fibrillation, Hx Hypercholesterolemia, Hx Hypertension Denies: Hx Coronary Artery Disease, Hx Heart Attack Pulmonary Medical History: Denies: Hx Asthma, Hx Bronchitis, Hx COPD, Hx Pneumonia Neurological Medical History: Denies: Hx Cerebrovascular Accident, Hx Seizures Endocrine Medical History: Reports: Hx Diabetes Mellitus Type 2, Hx Hypothyroidism Renal/ Medical History: Denies: Hx Peritoneal Dialysis GI Medical History: Denies: Hx Hepatitis, Hx Hiatal Hernia, Hx Ulcer Musculoskeletal Medical History: Reports Hx Arthritis - LUIS DANIEL. KNEES Skin Medical History: Reports Hx MRSA Infectious Medical History: Denies: Hx Hepatitis Past Surgical History: Reports: Hx Orthopedic Surgery - right knee replacement, Hx Pacemaker - PAPER ON CHART. Denies: Hx Open Heart Surgery - Immunizations Hx Diphtheria, Pertussis, Tetanus Vaccination: - UNSURE Hx Pneumococcal Vaccination: 08/15/17 Review of Systems - Review of Systems Constitutional: No symptoms reported EENT: No symptoms reported Cardiovascular: No symptoms reported Respiratory: See HPI Gastrointestinal: No symptoms reported Genitourinary: No symptoms reported Musculoskeletal: No symptoms reported Skin: No symptoms reported Neurological/Psychological: No symptoms reported Physical Exam - Vital signs Vitals: Temp Pulse Resp BP Pulse Ox 97.4 F 101 H 14 115/57 L 98 12/10/19 17:45 12/10/19 17:45 12/10/19 17:45 12/10/19 17:45 12/10/19 17:45 - Notes Notes: Is a very pleasant 84-year-old gentleman who appears her stated age in no acute distress. Head is normocephalic and atraumatic. Left eye shows significant cataract and hazing of the cornea. Right pupil is round, reactive to light. Oral mucosa is moist. Neck is supple, no midline tenderness or step-off, no paraspinal musculature tenderness is appreciated. Heart is irregularly irregular, lungs are clear to auscultation bilaterally, but some upper airway sounds are noted. Abdomen soft, nontender, normoactive bowel sounds. Extremi ties without cyanosis or clubbing. Posterior calves are nontender. Skin is warm and dry. He does have a 0.5 cm laceration noted just lateral to the right brow without any active bleeding or signs of foreign body. Patient is awake, alert, oriented x3. Cranial nerves II - XII are grossly intact without focal neurological deficits. Strength is plus 4 out of 5 bilateral upper and lower extremities. Sensation is intact. Reflexes symmetrical. Intact pvghao-pffd-yqjxyl, rapid alternating movements, uapr-tn-cunp. Course - Re-evaluation Re-evalutation: 12/10/19 22:03 Patient presents emergency department for evaluation. Laboratory investigations were obtained. His INR is mildly subtherapeutic. A CT scan was unremarkable. Patient remained stable throughout the course of his stay. CT scan was unremarkable, blood work is unremarkable. Because of the additional complaint of cough, chest x-ray was added. We will continue to monitor. 12/10/19 23:58 Patient's chest x-ray was read by radiology as showing cardiomegaly and pulmonary vascular congestion. The patient has a cough, no shortness of breath. No orthopnea. His oxygen saturation is 98% on room air. I do not have a strong suspicion for acute pulmonary vascular congestion, I's were strongly suspect these are chronic changes on his chest x-ray. Findings were explained to the patient and his daughter, and they were amenable for just watchful waiting. He is told he can take aljw-pob-doyfrht Robitussin (just plain Robitussin) for his cough. They voiced understanding will follow-up closely with primary care. Return to the ED with worsening. - Vital Signs Vital signs: Temp Pulse Resp BP Pulse Ox 97.4 F 101 H 14 115/57 L 98 12/10/19 17:45 12/10/19 17:45 12/10/19 17:45 12/10/19 17:45 12/10/19 17:45 - Laboratory Result Diagrams: 12/10/19 18:40 12/10/19 18:40 Laboratory results interpreted by me: 12/10/19 12/10/19 12/10/19 18:37 18:40 18:40 Hgb 12.0 L Hct 37.1 L MCH 25.8 L RDW 18.1 H PT 22.6 H BUN Est GFR (MDRD) Non-Af Glucose POC Glucose 121 H 12/10/19 12/10/19 18:40 20:44 Hgb Hct MCH RDW PT BUN 30 H Est GFR (MDRD) Non-Af 59 L Glucose 115 H POC Glucose 116 H Discharge - Discharge Clinical Impression: Cough Contusion of right orbit Qualifiers: Encounter type: initial encounter Qualified Code(s): S05.11XA - Contusion of eyeball and orbital tissues, right eye, initial encounter Facial abrasion Qualifiers: Encounter type: initial encounter Qualified Code(s): S00.81XA - Abrasion of other part of head, initial encounter Head injury Qualifiers: Encounter type: initial encounter Qualified Code(s): S09.90XA - Unspecified injury of head, initial encounter Condition: Stable Disposition: HOME, SELF-CARE Instructions: Head Injury Precautions ([facility]) Additional Instructions: Keep wound on your face clean with soap and water. Continue your medications as prescribed. Take wlfn-ect-ohppgac Robitussin as needed for cough. Follow-up with primary care this week. If you develop chest pain, difficulty breathing, visual changes, or any other new or concerning symptoms, please return immediately to the emergency department for evaluation. Referrals: ANDREEA CROWELL MD [Primary Care Provider] - Follow up as needed
--- NOTE | 2019-12-10 23:27 | RADIOLOGY REPORT (SQ) ---
EXAM DESCRIPTION: XR CHEST 2 VIEWS COMPLETED DATE/TME: 12/10/2019 21:59 EXAM DESCRIPTION: CLINICAL HISTORY: cough COMPARISON: 04/23/2017 FINDINGS: Frontal and lateral views of the chest. Cardiomediastinal silhouette: Left-sided pacemaker. Tortuosity of the thoracic aorta. Cardiomegaly. Pulmonary vascular congestion. Lungs: No consolidation, pneumothorax, or pleural effusion. Bones: Postoperative change of the cervical spine and right humerus. Degenerative change of the spine. Upper abdomen: Prior cholecystectomy. IMPRESSION: 1. Cardiomegaly with pulmonary vascular congestion.
[2019-12-11 00:21] VITALS: BP 126/60
== END 2019-12-11 00:20 | disposition home or self-care (01) ==
LOC: ER 17:32
DX: S05.11XA Contusion of eyeball and orbital tissues, right eye, initial encounter (principal); S01.81XA Laceration without foreign body of other part of head, initial encounter; W01.0XXA Fall on same level from slipping, tripping and stumbling without subsequent striking against object, initial encounter; Y92.009 Unspecified place in unspecified non-institutional (private) residence as the place of occurrence of the external cause; R05 Cough; R09.89 Other specified symptoms and signs involving the circulatory and respiratory systems; I11.9 Hypertensive heart disease without heart failure; H26.9 Unspecified cataract; I48.91 Unspecified atrial fibrillation; E78.00 Pure hypercholesterolemia, unspecified; E03.9 Hypothyroidism, unspecified; E11.40 Type 2 diabetes mellitus with diabetic neuropathy, unspecified; Z79.84 Long term (current) use of oral hypoglycemic drugs; Z79.01 Long term (current) use of anticoagulants; Z88.8 Allergy status to other drugs, medicaments and biological substances; Z79.899 Other long term (current) drug therapy
CPT/HCPCS: 36415; 70450; 71046; 80048; 82962; 85025; 85610; 85730; 90471; 90715; 99284

== ENCOUNTER 2020-04-19 22:20 | Inpatient (IN) | payer MEDICARE, OTHER ==
[2020-04-19 22:55] LABS: VENOUS BLOOD BASE EXCESS -0.8 mmol/L; VENOUS BLOOD HCO3 22.6 mmol/L (20-32); VENOUS BLOOD PCO2 33.5 mmHg (35-63); VENOUS BLOOD PH 7.45 (7.30-7.42)
[2020-04-19 22:56] LABS: HEMATOCRIT 32.6 % (37.9-51.0); HEMOGLOBIN 10.7 g/dL (13.5-17.0); MEAN CORPUSCULAR HEMOGLOBIN 25.8 pg (27.0-33.4); MEAN CORPUSCULAR HGB CONC 32.9 g/dL (32.0-36.0); MEAN CORPUSCULAR VOLUME 78 fl (80-97); PLATELET COUNT 147 10^3/uL (150-450); RED BLOOD COUNT 4.16 10^6/uL (4.35-5.55); RED CELL DISTRIBUTION WIDTH 20.2 % (11.5-14.0); WHITE BLOOD COUNT 7.3 10^3/uL (4.0-10.5)
[2020-04-19 22:57] LABS: INTERNATIONAL RATION (INR) 4.77; PROTHROMBIN TIME 46.1 SEC (11.4-15.4)
--- NOTE | 2020-04-19 23:09 | ER Document Report ---
ED General - General Chief Complaint: Fever Stated Complaint: ALTERED MENTAL STATUS Time Seen by Provider: 04/19/20 23:00 Notes: Patient is an 84-year-old male that comes from home by EMS for chief complaint of altered mental status. Reportedly patient was fine yesterday but today when family was having dinner with him they noticed that patient was acting confused and less responsive than usual. Ambulance was called for altered mental status. Temperature was 100 Fahrenheit on arrival per EMS, given Tylenol by EMS. Patient has not had any vomiting, he denies chest pain, abdominal pain, headache, or any complaints. Patient does have a congested cough on my exam. Patient denies any sick exposures or any other complaints. Patient is oriented to person and place, states he came by ambulance, not oriented to year or able to give any significant history otherwise. Patient does live alone with family nearby. Past medical history includes atrial fibrillation, hypertension, type 2 diabetes, hypothyroidism, pacemaker. TRAVEL OUTSIDE OF THE [place] IN LAST 30 DAYS: No - Related Data Allergies/Adverse Reactions: niacin [From Vivebio] Allergy (Mild, Verified 04/20/20 00:33) hotflashes lasting several hours Past Medical History - General Information source: Patient - Social History Smoking Status: Never Smoker Frequency of alcohol use: None Drug Abuse: None Lives with: Alone Family History: Reviewed & Not Pertinent - Past Medical History Cardiac Medical History: Reports: Hx Atrial Fibrillation, Hx Hypercholester olemia, Hx Hypertension Denies: Hx Coronary Artery Disease, Hx Heart Attack Pulmonary Medical History: Denies: Hx Asthma, Hx Bronchitis, Hx COPD, Hx Pneumonia Neurological Medical History: Denies: Hx Cerebrovascular Accident, Hx Seizures Endocrine Medical History: Reports: Hx Diabetes Mellitus Type 2, Hx Hyperthyroidism, Hx Hypothyroidism Renal/ Medical History: Denies: Hx Peritoneal Dialysis GI Medical History: Denies: Hx Hepatitis, Hx Hiatal Hernia, Hx Ulcer Musculoskeletal Medical History: Reports Hx Arthritis - LUIS DANIEL. KNEES Skin Medical History: Reports Hx MRSA Infectious Medical History: Denies: Hx Hepatitis Past Surgical History: Reports: Hx Orthopedic Surgery - right knee replacement, Hx Pacemaker - PAPER ON CHART. Denies: Hx Open Heart Surgery - Immunizations Hx Diphtheria, Pertussis, Tetanus Vaccination: - UNSURE Hx Pneumococcal Vaccination: 08/15/17 Review of Systems - Review of Systems Constitutional: See HPI EENT: No symptoms reported Cardiovascular: No symptoms reported Respiratory: No symptoms reported Gastrointestinal: No symptoms reported Genitourinary: No symptoms reported Male Genitourinary: No symptoms reported Musculoskeletal: No symptoms reported Skin: No symptoms reported Hematologic/Lymphatic: No symptoms reported Neurological/Psychological: See HPI Physical Exam - Vital signs Vitals: Temp Pulse Ox 98.3 F 96 04/19/20 22:24 04/19/20 22:24 - Notes Notes: GENERAL: Alert and interactive, somewhat ill-appearing HEAD: Normocephalic, atraumatic. 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 Oropharynx unremarkable. Airway patent. NECK: Full range of motion. Supple. Trachea midline. No lymphadenopathy. LUNGS: Patient with a congested cough but no wheezes or rhonchi. There are rales in both lung bases. No tachypnea or respiratory distress. HEART: Irregularly irregular, normal rate, no murmur ABDOMEN: Soft, non-tender. Non-distended. Bowel sounds present in all 4 quadrants. GENITOURINARY: Deferred EXTREMITIES: Moves all 4 extremities spontaneously. There is 1+ edema bilaterally and scattered abrasions over the lower extremities anteriorly but no noted erythema, tenderness, or other concerning antibody noted. Normal distal neurovascular exam. BACK: no cervical, thoracic, lumbar midline tenderness. No saddle anesthesia, normal distal neurovascular exam. Moves all extremities in full range of motion. NEUROLOGICAL: Alert and oriented to person and place but not events. Normal speech. Cranial nerves II through XII grossly intact. Strength 5/5 in all extr emities. PSYCH: Normal affect, normal mood. SKIN: Slightly jaundiced in appearance Course - Re-evaluation Re-evalutation: On initial evaluation patient is slightly ill-appearing and appears slightly jaundiced. We also obtained a urine sample and this appears very dark. Initial work-up included septic work-up and also right upper quadrant ultrasound. Vital signs unremarkable. Temperature initially 100 F. Patient with a congested cough and rales on exam, I suspect patient has pneumonia. Patient was given a dose of Rocephin anticipating community-acquired pneumonia. CBC shows microcytic anemia, elevation of neutrophils, 2% bands. No leukocytosis. Chemistry does show elevated BUN, elevated bilirubin, but lipase and liver function tests are unremarkable. Creatinine is unremarkable. Patient was not given IV fluids because patient has rales on exam and lower extremity edema. Right upper quadrant ultrasound with no gallbladder noted, dilated common bile duct which can be normal after cholecystectomy, cyst on the right kidney, nonspecific. Chest x-ray with small pleural effusion but otherwise nonspecific. Urinalysis shows bilirubin but not infection and is nonspecific. Cultures are pending. Lactic acid is elevated at 3.2. CAT scan of the head is negative. I discussed with Dr. Najera. He recommends CT of the chest, abdomen, pelvis with IV contrast to clarify possible pneumonia versus other concerning antibody with elevated bilirubin. CAT scan does not show any particular findings other than some pleural effusions and some bilateral airspace disease. Clinically I suspect patient has pneumonia. He will be tested for the coronavirus. Because of patient's advanced age, altered mental status below baseline, elevated lactic acid, suspected pneumonia I will discuss with hospitalist for admission. I did speak with Misael, patient's daughter, initially she was stating she wanted patient transferred to [facility], however after discussion she states that she would be satisfied and actually prefer patient be admitted here. Patient does not meet transfer criteria based on necessity with lack of specialty. Discussed with Dr. Lopez. Discussed with Dr. Cervantes, patient accepted to telemetry full admission. - Vital Signs Vital signs: Temp Pulse Resp BP Pulse Ox 97.8 F 13 133/70 H 97 04/20/20 03:31 04/20/20 06:00 04/20/20 06:00 04/20/20 06:00 - Laboratory Result Diagrams: 04/19/20 22:05 04/19/20 22:05 Laboratory results interpreted by me: 04/19/20 04/19/20 04/19/20 22:05 22:05 22:05 RBC 4.16 L Hgb 10.7 L Hct 32.6 L MCV 78 L MCH 25.8 L RDW 20.2 H Plt Count 147 L Seg Neuts % (Manual) 95 H Band Neutrophils % 2 L Lymphocytes % (Manual) 2 L Monocytes % (Manual) 0 L Abs Lymphs (Manual) 0.1 L Abs Monocytes (Manual) 0.0 L PT 46.1 H VBG pH VBG pCO2 BUN 27 H Lactic Acid Total Bilirubin 4.3 H Direct Bilirubin 2.1 H NT-Pro-B Natriuret Pep Total Protein 5.9 L Albumin 2.9 L Urine Bilirubin Urine Urobilinogen Urine Ascorbic Acid Digoxin 04/19/20 04/19/20 04/19/20 22:05 22:05 22:31 RBC Hgb Hct MCV MCH RDW Plt Count Seg Neuts % (Manual) Band Neutrophils % Lymphocytes % (Manual) Monocytes % (Manual) Abs Lymphs (Manual) Abs Monocytes (Manual) PT VBG pH 7.45 H VBG pCO2 33.5 L BUN Lactic Acid Total Bilirubin Direct Bilirubin NT-Pro-B Natriuret Pep 83483 H Total Protein Albumin Urine Bilirubin Urine Urobilinogen Urine Ascorbic Acid Digoxin 0.78 L 04/19/20 04/19/20 22:31 22:50 RBC Hgb Hct MCV MCH RDW Plt Count Seg Neuts % (Manual) Band Neutrophils % Lymphocytes % (Manual) Monocytes % (Manual) Abs Lymphs (Manual) Abs Monocytes (Manual) PT VBG pH VBG pCO2 BUN Lactic Acid 3.2 H Total Bilirubin Direct Bilirubin NT-Pro-B Natriuret Pep Total Protein Albumin Urine Bilirubin SMALL H Urine Urobilinogen 4.0 H Urine Ascorbic Acid 20 H Digoxin - EKG Interpretation by Me Additional EKG results interpreted by me: EKG shows atrial fibrillation at a rate of 63, PVCs, QTC 390, no T wave inversions or ST segment changes in consecutive leads Discharge - Discharge Clinical Impression: Cough, Elevated bilirubin Altered mental status Qualifiers: Altered mental status type: unspecified Qualified Code(s): R41.82 - Altered mental status, unspecified Pneumonia Qualifiers: Pneumonia type: due to unspecified organism Laterality: unspecified laterality Lung location: unspecified part of lung Qualified Code(s): J18.9 - Pneumonia, unspecified organism Condition: Stable Disposition: ADMITTED INPATIENT Admitting Provider: Billy (Hospitalist) Unit Admitted: Telemetry
--- NOTE | 2020-04-19 23:16 | RADIOLOGY REPORT (SQ) ---
EXAM DESCRIPTION: XR CHEST 1 VIEW COMPLETED DATE/TME: 04/19/2020 22:34 CLINICAL HISTORY: 84 years Male, fever, sepsis alert COMPARISON: None. NUMBER OF VIEWS/TECHNIQUE: 1/AP FINDINGS: Adequate lung volume, prominent interstitium, moderately enlarged cardiac silhouette, and intact bony thorax.Left cardiac stimulator with leads. No cervical spinal hardware partially imaged. Small left effusion. IMPRESSION: Small left basilar effusion-opacity. Chronic cardiac enlargement.
[2020-04-19 23:24] LABS: ABSOLUTE LYMPHOCYTES# (MANUAL) 0.1 10^3/uL (0.5-4.7); BAND NEUTROPHILS % (MANUAL) 2 % (3-5); BASOPHILS % (MANUAL) 1 % (0-2); EOSINOPHILS % (MANUAL) 0 % (0-6); LYMPHOCYTES % (MANUAL) 2 % (13-45); MONOCYTES % (MANUAL) 0 % (3-13); SEGMENTED NEUTROPHILS % (MAN) 95 % (42-78); TOTAL CELLS COUNTED 100
[2020-04-19 23:27] LABS: ANISOCYTOSIS 2+; BURR CELLS 1+; OVALOCYTES 1+; PLATELET COMMENT ADEQUATE; POIKILOCYTOSIS 2+; SCHISTOCYTES SLIGHT; TEAR DROP CELLS SLIGHT; TOXIC GRANULATION 1+; TOXIC VACUOLATION PRESENT
[2020-04-19] MEDS ORDERED: CEFTRIAXONE 1 GM/D5W RTU 1 GM/50 ML RTUPB IV ONE (23:28)
[2020-04-19 23:30] LABS: APPEARANCE,URINE SLIGHTLY-CLOUDY; BILIRUBIN,URINE SMALL (NEGATIVE); COLOR,URINE AMBER; GLUCOSE, URINE NEGATIVE (NEGATIVE); KETONES,URINE NEGATIVE (NEGATIVE); PROTEIN,URINE NEGATIVE (NEGATIVE); URINE SPECIFIC GRAVITY 1.019
[2020-04-19 23:38] LABS: ALBUMIN 2.9 g/dL (3.5-5.0); ALKALINE PHOSPHATASE 40 U/L (38-126); ANION GAP 6 (5-19); ASPARTATE AMINO TRANSFERASE 35 U/L (17-59); BILIRUBIN,DIRECT 2.1 mg/dL (0.0-0.4); BILIRUBIN,TOTAL 4.3 mg/dL (0.2-1.3); BLOOD UREA NITROGEN 27 mg/dL (7-20); CALCIUM 8.7 mg/dL (8.4-10.2); CARBON DIOXIDE 25 mmol/L (22-30); CHLORIDE 107 mmol/L (98-107); GLUCOSE 102 mg/dL (75-110); POTASSIUM 3.6 mmol/L (3.6-5.0); TOTAL PROTEIN 5.9 g/dL (6.3-8.2)
--- NOTE | 2020-04-20 00:04 | RADIOLOGY REPORT (SQ) ---
EXAM DESCRIPTION: CT HEAD WITHOUT IV CONTRAST COMPLETED DATE/TME: 04/19/2020 23:07 CLINICAL HISTORY: 84 years Male, altered mental status COMPARISON:Dec 10 TECHNIQUE: No contrast. Coronal and sagittal reformat. This exam was performed according to our departmental dose-optimization program, which includes automated exposure control, adjustment of the mA and/or kV according to patient size and/or use of iterative reconstruction technique. FINDINGS: No hemorrhage or infarct. Moderate parenchymal volume loss. No mass, mass effect, or midline shift. Atherosclerosis. Brain and extra-axial structures appear otherwise intact. IMPRESSION: No acute findings.
--- NOTE | 2020-04-20 00:50 | RADIOLOGY REPORT (SQ) ---
EXAM DESCRIPTION: Ultrasound abdomen Limited CLINICAL HISTORY: 84 years Male AMS, fever, jaundiced, elevated bili TECHNIQUE: Right upper quadrant ultrasound was performed. COMPARISON: None. FINDINGS: Pancreas: Visualized portions are unremarkable. Liver:The shoulders up to 19.8 cm. There is diffusely increased echogenicity without focal mass identified. Portal venous flow is hepatopedal, normal. Gallbladder: The gallbladder is not definitively identified. Technologist notes a negative sonographic Reyes sign within this region. Common bile duct: 8.1 mm. Right kidney: Measures 16.6 x 4.4 x 4.8 cm. Hypoechoic structure most consistent with a cyst measures 1.8 x 1.8 x 22.4 cm. Additional inferior hypoechoic structure along the inferior aspect of the right kidney, which appears to contain debris, measures 7.2 x 4.2 x 7.0 cm.. No hydronephrosis. There is evidence of free fluid within the right upper quadrant. IMPRESSION: 1. Gallbladder not definitively visualized and may be surgically absent. In the setting of cholecystectomy, enlargement of the common bile duct to 8.1 mm may be due to postcholecystectomy state. Clinical correlation is advised. 2. Mild hepatomegaly. Increased echogenicity of the hepatic parenchyma is nonspecific but can be seen in the setting of hepatic steatosis. Clinical correlation is advised. 3. Complex appearing cystic structure associated with the right kidney measuring up to 7.2 cm. This finding is incompletely evaluated with this technique and further evaluation with multiphase CT or MRI is recommended. 4. Free fluid in the right upper quadrant is a nonspecific finding.
--- NOTE | 2020-04-20 02:43 | RADIOLOGY REPORT (SQ) ---
CLINICAL INDICATION: fever, productive cough, elevated bili. . TECHNIQUE: Contrast enhanced spiral axial CT images obtained through chest abdomen and pelvis with multiplanar reconstructions. This exam was performed according to our departmental dose-optimization program, which includes automated exposure control, adjustment of the mA and/or kV according to patient size and/or use of iterative reconstruction techniques. COMPARISON: None. CORRELATION: None. FINDINGS: Chest: The heart is markedly enlarged. Significant reflux of contrast into inferior vena cava and hepatic veins suggesting right heart dysfunction. Coronary calcification. No pericardial effusion. No bulky mediastinal adenopathy. The lungs demonstrate small bilateral pleural effusions. Adjacent airspace disease mostly compressive atelectasis. Interstitial prominence at the bases, likely chronic. No dense consolidation. No pneumothorax. Old granulomatous disease is seen. Abdomen: The liver is homogeneous.. The gallbladder is surgically absent. The pancreas is unremarkable. The spleen is unremarkable. The adrenals are unremarkable. The kidneys appear grossly normal without evidence of urolithiasis or hydronephrosis. Cortical loss of the kidneys. Large cyst arising from the lower pole of the right kidney measuring 7.6 cm. There is no evidence of free air. No free fluid. No bulky adenopathy. Abdominal aorta is nonaneurysmal. Pelvis: The bowel is nonobstructed. The bowel is unopacified with oral contrast. 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 Diverticulosis. No acute diverticulitis. Significant vascular calcification.. The appendix is not seen.. Visualized bones demonstrate age-appropriate osteoarthritis. Postsurgical change right humerus. Wedge compression fracture superior endplate of L1 which appears old. IMPRESSION: Artifact from the patient's arms. Imaging is degraded by patient motion, with resultant artifact. The best possible images were obtained. Small bilateral pleural effusions. Adjacent airspace disease mostly compressive atelectasis. No acute intra-abdominal process is seen..
[2020-04-20] MEDS ORDERED: AZITHROMYCIN INJ 500 MG VIAL IV ONE (02:55)
[2020-04-20] MEDS ORDERED: GUAIFENESIN SYRP 200 MG/10 ML UDC PO PRN (04:39)
[2020-04-20] MEDS ORDERED: IPRATROPIUM/ALBUTEROL 0.5-2.5 MG/3 ML AMPUL NEB PRN (04:39)
[2020-04-20] MEDS ORDERED: NORMAL SALINE 1000 ML 1,000 ML IV PRN (04:45)
[2020-04-20] MEDS ORDERED: CARVEDILOL 12.5 MG TABLET PO ONE (06:00)
[2020-04-20] MEDS: HEPARIN SOD (PORCINE) 5,000 UNIT/ML 1 ML VIAL SUBCUT SCH ×2 (06:15→14:26)
--- NOTE | 2020-04-20 06:30 | PDOC H&P ---
History of Present Illness Admission Date/PCP: 04/20/20 04:45 ANDREEA CROWELL MD Patient complains of: Fever and confusion History of Present Illness: JOSE C JUSTICE is a 84 year old male with a past medical history of atrial fibrillation with a permanent pacemaker, diabetes, hypertension, hypothyroidism, dementia who lives alone presents with fever and confusion. In the emergency department he is found to have a congested cough, tachypnea and a fever of 100.0. No leukocytosis but a left shift extensive imaging is unremarkable with exception to bibasilar atelectasis versus infiltrate and a large 7 cm renal cyst. Patient denies shortness of breath nausea vomiting or pain. He is socially appropriate but a poor historian and unable to provide additional history. Past Medical History Cardiac Medical History: Reports: Atrial Fibrillation, Hyperlipidema, Hypertension Denies: Coronary Artery Disease, Myocardial Infarction Pulmonary Medical History: Denies: Asthma, Bronchitis, Chronic Obstructive Pulmonary Disease (COPD), Pneumonia Neurological Medical History: Denies: Seizures Endocrine Medical History: Reports: Diabetes Mellitus Type 2, Hyperthyroidism, Hypothyroidism GI Medical History: Denies: Hepatitis, Hiatal Hernia Musculoskeltal Medical History: Reports: Arthritis - LUIS DANIEL. KNEES Hematology: Denies: Anemia, Sickle Cell Disease Past Surgical History Past Surgical History: Reports: Orthopedic Surgery - right knee replacement, Pacemaker - PAPER [employer] CHART Social History Information Source: Patient, [facility] Records Lives with: Alone Smoking Status: Unknown if Ever Smoked Frequency of Alcohol Use: None Hx Recreational Drug Use: No Hx Prescription Drug Abuse: No - Advance Directive Resuscitation Status: Full Code Family History Family History: Hypertension Parental Family History Reviewed: Yes Children Family History Reviewed: Yes Sibling(s) Family History Reviewed.: Yes Medication/Allergy Home Medications: Atorvastatin Calcium [Lipitor] 80 mg PO DAILY 04/20/20 Carvedilol [Coreg] 25 mg PO BID 04/20/20 Digoxin 125 mcg PO QHS 04/20/20 Donepezil HCl [Aricept] 5 mg PO DAILY 04/20/20 Ergocalciferol (Vitamin D2) [Vitamin D2] 1,250 mcg PO Q7D 04/20/20 Escitalopram Oxalate [Lexapro] 10 mg PO DAILY 04/20/20 Fenofibrate 160 mg PO DAILY 04/20/20 Glipizide [Glucotrol] 5 mg PO DAILY 04/20/20 Hydrocodone/Acetaminophen [[place] 5-325 mg Tablet] 1 tab PO PRN PRN 04/20/20 Levothyroxine Sodium [Synthroid 0.075 mg Tablet] 0.075 mg PO DAILY 04/20/20 Lisinopril 20 mg PO DAILY 04/20/20 Nitroglycerin [Nitrostat 0.4 mg (1/150 Gr) Tabs 25/Bottle] 1 tab SL Q5MP PRN 04/20/20 Torsemide 5 mg PO ASDIR 04/20/20 Vitamin B Complex 1 each PO DAILY 04/20/20 Warfarin Sodium 2.5 mg PO ASDIR 04/20/20 Warfarin Sodium [Coumadin 5 mg Tablet] 5 mg PO ASDIR 04/20/20 Allergies/Adverse Reactions: niacin [From Niaspan] Allergy (Mild, Verified 04/20/20 00:33) hotflashes lasting several hours Review of Systems Constitutional: ABSENT: chills, fever(s), headache(s), weight gain, weight loss Eyes: ABSENT: visual disturbances Ears: ABSENT: hearing changes Cardiovascular: ABSENT: chest pain, dyspnea on exertion, edema, orthropnea, palpitations Respiratory: ABSENT: cough, hemoptysis Gastrointestinal: ABSENT: abdominal pain, constipation, diarrhea, hematemesis, h ematochezia, nausea, vomiting Genitourinary: ABSENT: dysuria, hematuria Musculoskeletal: ABSENT: joint swelling Integumentary: ABSENT: rash, wounds Neurological: ABSENT: abnormal gait, abnormal speech, confusion, dizziness, focal weakness, syncope Psychiatric: ABSENT: anxiety, depression, homidical ideation, suicidal ideation Endocrine: ABSENT: cold intolerance, heat intolerance, polydipsia, polyuria Hematologic/Lymphatic: ABSENT: easy bleeding, easy bruising Physical Exam Vital Signs: Temp Pulse Resp BP Pulse Ox 97.8 F 13 133/70 H 97 04/20/20 03:31 04/20/20 06:00 04/20/20 06:00 04/20/20 06:00 Intake & Output 04/18/20 04/19/20 04/20/20 11:59 11:59 11:59 Intake Total 50 Balance 50 Weight 89.7 kg General appearance: PRESENT: no acute distress, cooperative, well-developed, wel l-nourished Head exam: PRESENT: atraumatic, normocephalic Eye exam: PRESENT: conjunctiva pink, EOMI, PERRLA. ABSENT: scleral icterus Ear exam: PRESENT: normal external ear exam Mouth exam: PRESENT: moist, tongue midline Neck exam: ABSENT: carotid bruit, JVD, lymphadenopathy, thyromegaly Respiratory exam: PRESENT: decreased breath sounds, prolonged expiratory phas. ABSENT: rales, rhonchi, wheezes Cardiovascular exam: PRESENT: irregular rhythm, +S1, +S2 Pulses: PRESENT: normal dorsalis pedis pul Vascular exam: PRESENT: normal capillary refill GI/Abdominal exam: PRESENT: normal bowel sounds, soft. ABSENT: distended, guarding, mass, organolmegaly, rebound, tenderness Rectal exam: PRESENT: deferred Extremities exam: PRESENT: full ROM, +1 edema. ABSENT: calf tenderness, clubbing, pedal edema Neurological exam: PRESENT: alert, awake, oriented to person, CN II-XII grossly intact. ABSENT: motor sensory deficit Psychiatric exam: PRESENT: appropriate affect, normal mood. ABSENT: homicidal ideation, suicidal ideation Skin exam: PRESENT: dry, intact, warm. ABSENT: cyanosis, rash Results Laboratory Results: 04/19/20 22:05 04/19/20 22:05 04/19/20 04/19/20 04/19/20 22:05 22:05 22:05 WBC 7.3 RBC 4.16 L Hgb 10.7 L Hct 32.6 L MCV 78 L MCH 25.8 L MCHC 32.9 RDW 20.2 H Plt Count 147 L Seg Neutrophils % Not Reportable VBG pH VBG pCO2 VBG HCO3 VBG Base Excess Sodium 138.4 Potassium 3.6 Chloride 107 Carbon Dioxide 25 Anion Gap 6 BUN 27 H Creatinine 0.86 Est GFR ( Amer) > 60 Glucose 102 Lactic Acid Calcium 8.7 Total Bilirubin 4.3 H AST 35 Alkaline Phosphatase 40 Ammonia Total Protein 5.9 L Albumin 2.9 L Lipase 244.4 Urine Color Urine Appearance Urine pH Ur Specific [place] Urine Protein Urine Glucose (UA) Urine Ketones Urine Blood Urine RBC (Auto) 04/19/20 04/19/20 04/19/20 22:31 22:31 22:50 WBC RBC Hgb Hct MCV MCH MCHC RDW Plt Count Seg Neutrophils % VBG pH 7.45 H VBG pCO2 33.5 L VBG HCO3 22.6 VBG Base Excess -0.8 Sodium Potassium Chloride Carbon Dioxide Anion Gap BUN Creatinine Est GFR ( Amer) Glucose Lactic Acid 3.2 H Calcium Total Bilirubin AST Alkaline Phosphatase Ammonia Total Protein Albumin Lipase Urine Color CHA Urine Appearance SLIGHTLY-CLOUDY Urine pH 5.0 Ur Specific [place] 1.019 Urine Protein NEGATIVE Urine Glucose (UA) NEGATIVE Urine Ketones NEGATIVE Urine Blood NEGATIVE Urine RBC (Auto) 4 04/20/20 04/20/20 01:32 01:32 WBC RBC Hgb Hct MCV MCH MCHC RDW Plt Count Seg Neutrophils % VBG pH VBG pCO2 VBG HCO3 VBG Base Excess Sodium Potassium Chloride Carbon Dioxide Anion Gap BUN Creatinine Est GFR ( Amer) Glucose Lactic Acid 1.7 Calcium Total Bilirubin AST Alkaline Phosphatase Ammonia 13.0 Total Protein Albumin Lipase Urine Color Urine Appearance Urine pH Ur Specific [place] Urine Protein Urine Glucose (UA) Urine Ketones Urine Blood Urine RBC (Auto) 04/19/20 04/19/20 04/20/20 22:05 22:05 01:32 Troponin I 0.044 0.049 NT-Pro-B Natriuret Pep 23294 H Impressions: Chest X-Ray 04/19/20 22:34 IMPRESSION: Small left basilar effusion-opacity. Chronic cardiac enlargement. Head CT 04/19/20 23:07 IMPRESSION: No acute findings. Abdomen Ultrasound 04/19/20 23:47 IMPRESSION: 1. Gallbladder not definitively visualized and may be surgically absent. In the setting of cholecystectomy, enlargement of the common bile duct to 8.1 mm may be due to postcholecystectomy state. Clinical correlation is advised. 2. Mild hepatomegaly. Increased echogenicity of the hepatic parenchyma is nonspecific but can be seen in the setting of hepatic steatosis. Clinical correlation is advised. 3. Complex appearing cystic structure associated with the right kidney measuring up to 7.2 cm. This finding is incompletely evaluated with this technique and further evaluation with multiphase CT or MRI is recommended. 4. Free fluid in the right upper quadrant is a nonspecific finding. Abdomen/Pelvis CT 04/20/20 01:12 IMPRESSION: Artifact from the patient's arms. Imaging is degraded by patient motion, with resultant artifact. The best possible images were obtained. Small bilateral pleural effusions. Adjacent airspace disease mostly compressive atelectasis. No acute intra-abdominal process is seen.. Chest CT 04/20/20 01:12 IMPRESSION: Artifact from the patient's arms. Imaging is degraded by patient motion, with resultant artifact. The best possible images were obtained. Small bilateral pleural effusions. Adjacent airspace disease mostly compressive atelectasis. No acute intra-abdominal process is seen.. Assessment and Plan - Diagnosis (1) Pneumonia Qualifiers: Pneumonia type: due to unspecified organism Laterality: unspecified laterality Lung location: unspecified part of lung Qualified Code(s): J18.9 - Pneumonia, unspecified organism Is this a current diagnosis for this admission?: Yes Plan: Possible aspiration pneumonitis versus bibasilar pneumonia. Empiric antibiotics, follow-up CBC and blood culture (2) Acute encephalopathy Is this a current diagnosis for this admission?: Yes Plan: Complicated by dementia and acute infection. Supportive care, pneumonia treatment (3) Anemia Is this a current diagnosis for this admission?: Yes Plan: Follow-up anemia labs and CBC - Time Time Spent with patient: 25-34 minutes - Inpatient Certification Medical Necessity: Need Close Monitoring Due to Risk of Patient Decompensation
[2020-04-20 06:36] LABS: HEMATOCRIT 30.7 % (37.9-51.0); MEAN CORPUSCULAR HEMOGLOBIN 25.6 pg (27.0-33.4); MEAN CORPUSCULAR HGB CONC 32.7 g/dL (32.0-36.0); MEAN CORPUSCULAR VOLUME 78 fl (80-97); PLATELET COUNT 136 10^3/uL (150-450); RED BLOOD COUNT 3.93 10^6/uL (4.35-5.55); RED CELL DISTRIBUTION WIDTH 20.3 % (11.5-14.0)
[2020-04-20 06:42] LABS: ABSOLUTE RETICS # 0.077 10^6/uL (0.028-0.122); RETICULOCYTE COUNT (AUTO) 1.99 % (0.66-2.85)
[2020-04-20 07:14] LABS: ABSOLUTE LYMPHOCYTES# (MANUAL) 0.4 10^3/uL (0.5-4.7); ABSOLUTE MONOCYTES # (MANUAL) 0.3 10^3/uL (0.1-1.4); BASOPHILS % (MANUAL) 0 % (0-2); EOSINOPHILS % (MANUAL) 0 % (0-6); LYMPHOCYTES % (MANUAL) 3 % (13-45); MONOCYTES % (MANUAL) 2 % (3-13); SEGMENTED NEUTROPHILS % (MAN) 95 % (42-78); TOTAL CELLS COUNTED 100
[2020-04-20 07:15] LABS: POLYCHROMASIA SLIGHT
[2020-04-20 07:16] LABS: ANISOCYTOSIS 2+; BURR CELLS 1+; HYPOCHROMASIA SLIGHT; OVALOCYTES 1+; PLATELET COMMENT DECREASED; POIKILOCYTOSIS 1+
[2020-04-20] MEDS: IPRATROPIUM/ALBUTEROL 0.5-2.5 MG/3 ML AMPUL NEB SCH ×2 (08:02→16:20)
[2020-04-20 08:10] LABS: ANION GAP 8 (5-19); BLOOD UREA NITROGEN 27 mg/dL (7-20); CALCIUM 8.8 mg/dL (8.4-10.2); CARBON DIOXIDE 22 mmol/L (22-30); CHLORIDE 112 mmol/L (98-107); GLUCOSE 127 mg/dL (75-110); POTASSIUM 3.7 mmol/L (3.6-5.0)
[2020-04-20 08:32] LABS: IRON(TIBC) 20.3 ug/dL (49-181)
[2020-04-20] MEDS: FLUTICASONE NASAL SPRAY 50 MCG/SPRY 120 SPRAY/16 GM NASL SCH ×2 (10:43→21:18)
[2020-04-20] MEDS: DONEPEZIL HCL 5 MG TABLET PO SCH (10:43)
[2020-04-20] MEDS: LEVOTHYROXINE SODIUM 0.075 MG TABLET PO SCH (10:43)
[2020-04-20] MEDS: ESCITALOPRAM OXALATE 10 MG TABLET PO SCH (10:43)
[2020-04-20] MEDS ORDERED: DEXTROSE 50%-WATER 25 GM/50 ML DISP.SYRIN IV PRN ×2 (11:59)
[2020-04-20] MEDS ORDERED: GLUCAGON,HUMAN RECOMB 1 MG INJ IM PRN (11:59)
[2020-04-20] MEDS ORDERED: DEXTROSE 40% GEL 15 GM TUBE PO PRN ×2 (11:59)
--- NOTE | 2020-04-20 12:03 | PDOC PROGRESS REPORT ---
Subjective Progress Note for:: 04/20/20 Subjective:: JOSE C JUSTICE is a 84 year old male with a past medical history of atrial fibrillation with a permanent pacemaker, diabetes, hypertension, hypothyroidism, dementia who was admitted 04/20/2020 with acute encephalopathy secondary to pneumonia. Patient was seen on morning rounds. He is found sitting up to bed, comfortably, on room air. He is oriented to self and place but unable to name year or describe the situation that led to him being admitted. He then mumbles i ncoherently and drifts back to sleep. He did wake easily, but again seemed somewhat confused and fatigued. He does appear to be comfortable and has not noted to be in any acute distress. He did deny fever, chest pain, dyspnea, abdominal pain, and nausea. No concerns per nursing staff. Reason For Visit: AMS,SOB,DM,PNEUMONIA Physical Exam Vital Signs: Temp Pulse Resp BP Pulse Ox 97.7 F 55 L 16 121/64 95 04/20/20 07:16 04/20/20 08:06 04/20/20 08:06 04/20/20 07:16 04/20/20 08:06 Intake & Output 04/19/20 04/20/20 04/21/20 06:59 06:59 06:59 Intake Total 50 750 Output Total 0 Balance 50 750 Weight 90.5 kg 90.5 kg General appearance: PRESENT: no acute distress, cooperative, hard of hearing, well-developed, well-nourished Head exam: PRESENT: atraumatic, normocephalic Eye exam: PRESENT: conjunctiva pink, EOMI, PERRLA. ABSENT: scleral icterus Mouth exam: PRESENT: moist, tongue midline Respiratory exam: PRESENT: clear to auscultation joao, decreased breath sounds - Bibasilar, prolonged expiratory phas. ABSENT: rales, rhonchi, wheezes Cardiovascular exam: PRESENT: RRR. ABSENT: diastolic murmur, rubs, systolic murmur Pulses: PRESENT: normal dorsalis pedis pul Vascular exam: PRESENT: normal capillary refill GI/Abdominal exam: PRESENT: normal bowel sounds, soft. ABSENT: distended, guarding, mass, organolmegaly, rebound, tenderness Rectal exam: PRESENT: deferred Extremities exam: PRESENT: full ROM - Moves all extremities spontaneously, +2 edema - BLE. ABSENT: calf tenderness, clubbing, pedal edema Neurological exam: PRESENT: alert, awake, oriented to person, oriented to place, CN II-XII grossly intact. ABSENT: oriented to time, oriented to situation, motor sensory deficit Psychiatric exam: PRESENT: appropriate affect, normal mood. ABSENT: homicidal ideation, suicidal ideation Skin exam: PRESENT: dry, intact, warm. ABSENT: cyanosis, rash Results Laboratory Results: 04/20/20 06:19 04/20/20 06:19 04/19/20 04/19/20 04/19/20 22:05 22:05 22:05 WBC 7.3 RBC 4.16 L Hgb 10.7 L Hct 32.6 L MCV 78 L MCH 25.8 L MCHC 32.9 RDW 20.2 H Plt Count 147 L Seg Neutrophils % Not Reportable Retic Count (auto) VBG pH VBG pCO2 VBG HCO3 VBG Base Excess Sodium 138.4 Potassium 3.6 Chloride 107 Carbon Dioxide 25 Anion Gap 6 BUN 27 H Creatinine 0.86 Est GFR ( Amer) > 60 Glucose 102 Lactic Acid Calcium 8.7 Iron TIBC % Saturation Transferrin Ferritin Total Bilirubin 4.3 H AST 35 Alkaline Phosphatase 40 Ammonia Total Protein 5.9 L Albumin 2.9 L Lipase 244.4 Vitamin B12 Folate Urine Color Urine Appearance Urine pH Ur Specific [place] Urine Protein Urine Glucose (UA) Urine Ketones Urine Blood Urine RBC (Auto) 04/19/20 04/19/20 04/19/20 22:31 22:31 22:50 WBC RBC Hgb Hct MCV MCH MCHC RDW Plt Count Seg Neutrophils % Retic Count (auto) VBG pH 7.45 H VBG pCO2 33.5 L VBG HCO3 22.6 VBG Base Excess -0.8 Sodium Potassium Chloride Carbon Dioxide Anion Gap BUN Creatinine Est GFR ( Amer) Glucose Lactic Acid 3.2 H Calcium Iron TIBC % Saturation Transferrin Ferritin Total Bilirubin AST Alkaline Phosphatase Ammonia Total Protein Albumin Lipase Vitamin B12 Folate Urine Color CHA Urine Appearance SLIGHTLY-CLOUDY Urine pH 5.0 Ur Specific [place] 1.019 Urine Protein NEGATIVE Urine Glucose (UA) NEGATIVE Urine Ketones NEGATIVE Urine Blood NEGATIVE Urine RBC (Auto) 4 04/20/20 04/20/20 04/20/20 01:32 01:32 06:19 WBC RBC Hgb Hct MCV MCH MCHC RDW Plt Count Seg Neutrophils % Retic Count (auto) VBG pH VBG pCO2 VBG HCO3 VBG Base Excess Sodium Potassium Chloride Carbon Dioxide Anion Gap BUN Creatinine Est GFR ( Amer) Glucose Lactic Acid 1.7 1.5 Calcium Iron TIBC % Saturation Transferrin Ferritin Total Bilirubin AST Alkaline Phosphatase Ammonia 13.0 Total Protein Albumin Lipase Vitamin B12 Folate Urine Color Urine Appearance Urine pH Ur Specific [place] Urine Protein Urine Glucose (UA) Urine Ketones Urine Blood Urine RBC (Auto) 04/20/20 04/20/20 04/20/20 06:19 06:19 06:19 WBC 14.0 H RBC 3.93 L Hgb 10.0 L Hct 30.7 L MCV 78 L MCH 25.6 L MCHC 32.7 RDW 20.3 H Plt Count 136 L Seg Neutrophils % Not Reportable Retic Count (auto) 1.99 VBG pH VBG pCO2 VBG HCO3 VBG Base Excess Sodium Potassium Chloride Carbon Dioxide Anion Gap BUN Creatinine Est GFR ( Amer) Glucose Lactic Acid Calcium Iron 20.3 L TIBC 349 % Saturation 6 Transferrin Ferritin 83.60 Total Bilirubin AST Alkaline Phosphatase Ammonia Total Protein Albumin Lipase Vitamin B12 536.0 Folate 13.60 Urine Color Urine Appearance Urine pH Ur Specific [place] Urine Protein Urine Glucose (UA) Urine Ketones Urine Blood Urine RBC (Auto) 04/20/20 04/20/20 06:19 06:19 WBC RBC Hgb Hct MCV MCH MCHC RDW Plt Count Seg Neutrophils % Retic Count (auto) VBG pH VBG pCO2 VBG HCO3 VBG Base Excess Sodium 142.3 Potassium 3.7 Chloride 112 H Carbon Dioxide 22 Anion Gap 8 BUN 27 H Creatinine 0.79 Est GFR ( Amer) > 60 Glucose 127 H Lactic Acid Calcium 8.8 Iron TIBC % Saturation Transferrin 310.18 Ferritin Total Bilirubin AST Alkaline Phosphatase Ammonia Total Protein Albumin Lipase Vitamin B12 Folate Urine Color Urine Appearance Urine pH Ur Specific [place] Urine Protein Urine Glucose (UA) Urine Ketones Urine Blood Urine RBC (Auto) 04/19/20 04/19/20 04/20/20 22:05 22:05 01:32 Troponin I 0.044 0.049 NT-Pro-B Natriuret Pep 19642 H Impressions: Chest X-Ray 04/19/20 22:34 IMPRESSION: Small left basilar effusion-opacity. Chronic cardiac enlargement. Head CT 04/19/20 23:07 IMPRESSION: No acute findings. Abdomen Ultrasound 04/19/20 23:47 IMPRESSION: 1. Gallbladder not definitively visualized and may be surgically absent. In the setting of cholecystectomy, enlargement of the common bile duct to 8.1 mm may be due to postcholecystectomy state. Clinical correlation is advised. 2. Mild hepatomegaly. Increased echogenicity of the hepatic parenchyma is nonspecific but can be seen in the setting of hepatic steatosis. Clinical correlation is advised. 3. Complex appearing cystic structure associated with the right kidney measuring up to 7.2 cm. This finding is incompletely evaluated with this technique and further evaluation with multiphase CT or MRI is recommended. 4. Free fluid in the right upper quadrant is a nonspecific finding. Abdomen/Pelvis CT 04/20/20 01:12 IMPRESSION: Artifact from the patient's arms. Imaging is degraded by patient motion, with resultant artifact. The best possible images were obtained. Small bilateral pleural effusions. Adjacent airspace disease mostly compressive atelectasis. No acute intra-abdominal process is seen.. Chest CT 04/20/20 01:12 IMPRESSION: Artifact from the patient's arms. Imaging is degraded by patient motion, with resultant artifact. The best possible images were obtained. Small bilateral pleural effusions. Adjacent airspace disease mostly compressive atelectasis. No acute intra-abdominal process is seen.. Assessment and Plan - Diagnosis (1) Pneumonia Qualifiers: Pneumonia type: due to unspecified organism Laterality: unspecified laterality Lung location: unspecified part of lung Qualified Code(s): J18.9 - Pneumonia, unspecified organism Is this a current diagnosis for this admission?: Yes Plan: Possible aspiration pneumonitis versus bibasilar pneumonia. Leukocytosis 14 this morning, remains afebrile. Continues to maintain saturations in the mid 90s, comfortably, on room air. Blood and sputum cultures pending. Patient was admitted to [facility] on continuous cardiac telemetry. He is provided supplemental oxygen as needed to maintain oxygen saturations greater than 89%. He is empirically placed on IV azithromycin and Rocephin. Scheduled and as needed nebulizer treatments. Encourage pulmonary toilet. Robitussin as needed. (2) Acute encephalopathy Is this a current diagnosis for this admission?: Yes Plan: Complicated by dementia and acute infection. Head CT benign. Supportive care Fall precautions. Management of pneumonia as above. (3) Anemia Qualifiers: Anemia type: iron deficiency Is this a current diagnosis for this admission?: Yes Plan: Anemia panel reveals iron deficiency. Start iron supplementation with meals. Follow-up CBC. (4) Atrial fibrillation Qualifiers: Atrial fibrillation type: chronic Is this a current diagnosis for this admission?: Yes Plan: Rate controlled on home dose carvedilol and digoxin. Monitor on telemetry. Coumadin dosing per pharmacy. (5) Diabetes Qualifiers: Diabetes mellitus type: type 2 Diabetes mellitus watermelon harvesting supervisor insulin use: without watermelon harvesting supervisor use Diabetes mellitus complication status: without complication Qualified Code(s): E11.9 - Type 2 diabetes mellitus without complications Is this a current diagnosis for this admission?: Yes Plan: Holding oral medications while admitted. We will check A1c with a.m. lab work. Patient is placed on a consistent carb diet. Accu-Cheks before meals and at bedtime with Humalog for sliding scale coverage. Hypoglycemia protocol in place. - Time Time Spent with patient: 25-34 minutes Medications reviewed and adjusted accordingly: Yes Anticipated discharge: Home with Homehealth
[2020-04-20] MEDS: INSULIN LISPRO 100 UNIT/ML 3 ML VIAL SUBCUT SCH ×2 (16:51→21:16)
[2020-04-20] MEDS: CARVEDILOL 12.5 MG TABLET PO SCH (17:08)
--- NOTE | 2020-04-20 20:51 | EKG REPORT ---
SEVERITY:- ABNORMAL ECG - ATRIAL FIBRILLATION VENTRICULAR PREMATURE COMPLEX NONSPECIFIC IVCD WITH LAD : Confirmed by: Kentrell Vogel 20-Apr-2020 20:50:51
[2020-04-20] MEDS: CEFTRIAXONE 1 GM/D5W RTU 1 GM/50 ML RTUPB IV SCH (21:15)
[2020-04-20] MEDS: AZITHROMYCIN 500 MG in DEXTROSE 5%-WATER 250 ML IV SCH (21:15)
[2020-04-20] MEDS: DIGOXIN 0.125 MG TABLET PO SCH (21:15)
[2020-04-20] MEDS ORDERED: WARFARIN SODIUM 2 MG TABLET PO SCH (22:00)
[2020-04-21] MEDS: IPRATROPIUM/ALBUTEROL 0.5-2.5 MG/3 ML AMPUL NEB SCH ×3 (00:20→15:42)
[2020-04-21 05:52] LABS: ABSOLUTE EOSINOPHILS # (AUTO) 0.1 10^3/uL (0.0-0.6); ABSOLUTE LYMPHOCYTES (AUTO) 0.7 10^3/uL (0.5-4.7); ABSOLUTE MONOCYTES (AUTO) 0.4 10^3/uL (0.1-1.4); BASOPHILS % (AUTO) 0.4 % (0-2); EOSINOPHILS % (AUTO) 0.8 % (0-6); HEMATOCRIT 31.1 % (37.9-51.0); HEMOGLOBIN 10.4 g/dL (13.5-17.0); LYMPHOCYTES % (AUTO) 8.6 % (13-45); MEAN CORPUSCULAR HGB CONC 33.4 g/dL (32.0-36.0); MEAN CORPUSCULAR VOLUME 78 fl (80-97); MONOCYTES % (AUTO) 4.8 % (3-13); PLATELET COUNT 131 10^3/uL (150-450); RED BLOOD COUNT 3.99 10^6/uL (4.35-5.55); RED CELL DISTRIBUTION WIDTH 20.4 % (11.5-14.0); SEGMENTED NEUTROPHILS % (AUTO) 85.4 % (42-78); TOTAL CELLS COUNTED % (AUTO) 100 %; WHITE BLOOD COUNT 8.2 10^3/uL (4.0-10.5)
[2020-04-21 05:56] LABS: INTERNATIONAL RATION (INR) 3.96; PROTHROMBIN TIME 39.7 SEC (11.4-15.4)
[2020-04-21 06:11] LABS: ANION GAP 7 (5-19); BLOOD UREA NITROGEN 25 mg/dL (7-20); CALCIUM 8.6 mg/dL (8.4-10.2); CARBON DIOXIDE 23 mmol/L (22-30); CHLORIDE 107 mmol/L (98-107); GLUCOSE 105 mg/dL (75-110); POTASSIUM 3.7 mmol/L (3.6-5.0)
[2020-04-21] MEDS: INSULIN LISPRO 100 UNIT/ML 3 ML VIAL SUBCUT SCH ×4 (08:21→22:06)
[2020-04-21] MEDS: ESCITALOPRAM OXALATE 10 MG TABLET PO SCH (09:28)
[2020-04-21] MEDS: CARVEDILOL 12.5 MG TABLET PO SCH ×2 (09:28→17:03)
[2020-04-21] MEDS: LEVOTHYROXINE SODIUM 0.075 MG TABLET PO SCH (09:29)
[2020-04-21] MEDS: DONEPEZIL HCL 5 MG TABLET PO SCH (09:29)
[2020-04-21] MEDS: FLUTICASONE NASAL SPRAY 50 MCG/SPRY 120 SPRAY/16 GM NASL SCH ×2 (09:29→22:07)
[2020-04-21] MEDS ORDERED: FUROSEMIDE 20 MG TABLET PO SCH (10:30)
--- NOTE | 2020-04-21 12:14 | PDOC PROGRESS REPORT ---
Subjective Progress Note for:: 04/21/20 Subjective:: JOSE C JUSTICE is a 84 year old male with a past medical history of atrial fibrillation with a permanent pacemaker, diabetes, hypertension, hypothyroidism, dementia who was admitted 04/20/2020 with acute encephalopathy secondary to pneumonia. Patient was seen on morning rounds. He is found sitting up to bed, comfortably, on room air. He was sleeping but woke easily when I said his name. He was orientated to self and year, but unable to answer any further questions, "I just don't know." He states that he is feeling well and denies questions or concerns. He does appear to be comfortable and has not noted to be in any acute distress. He did deny fever, chest pain, dyspnea, abdominal pain, and nausea. No concerns per nursing staff. Reason For Visit: AMS,SOB,DM,PNEUMONIA Physical Exam Vital Signs: Temp Pulse Resp BP Pulse Ox 97.8 F 72 16 129/80 H 96 04/21/20 08:00 04/21/20 08:25 04/21/20 08:25 04/21/20 08:00 04/21/20 08:25 Intake & Output 04/20/20 04/21/20 04/22/20 06:59 06:59 06:59 Intake Total 50 1040 Output Total 0 Balance 50 1040 Weight 90.5 kg 92.1 kg General appearance: PRESENT: no acute distress, cooperative, hard of hearing, well-developed, well-nourished Head exam: PRESENT: atraumatic, normocephalic Eye exam: PRESENT: conjunctiva pink, EOMI, PERRLA, other - blind Left eye. ABSENT: scleral icterus Mouth exam: PRESENT: moist, tongue midline Respiratory exam: PRESENT: clear to auscultation joao, symmetrical, unlabored. ABSENT: rales, rhonchi, wheezes Cardiovascular exam: PRESENT: RRR. ABSENT: diastolic murmur, rubs, systolic murmur Pulses: PRESENT: normal dorsalis pedis pul Vascular exam: PRESENT: normal capillary refill GI/Abdominal exam: PRESENT: normal bowel sounds, soft. ABSENT: distended, guarding, mass, organolmegaly, rebound, tenderness Rectal exam: PRESENT: deferred Extremities exam: PRESENT: full ROM, +2 edema - BLE. ABSENT: calf tenderness, clubbing, pedal edema Neurological exam: PRESENT: alert, awake, oriented to person, oriented to place, CN II-XII grossly intact, other - forgetfull, pleasantly confused. ABSENT: motor sensory deficit Psychiatric exam: PRESENT: appropriate affect, normal mood. ABSENT: homicidal ideation, suicidal ideation Skin exam: PRESENT: dry, intact, warm. ABSENT: cyanosis, rash Results Laboratory Results: 04/21/20 04:59 04/21/20 04:59 04/21/20 04/21/20 04:59 04:59 WBC 8.2 RBC 3.99 L Hgb 10.4 L Hct 31.1 L MCV 78 L MCH 26.0 L MCHC 33.4 RDW 20.4 H Plt Count 131 L Seg Neutrophils % 85.4 H Sodium 136.5 L Potassium 3.7 Chloride 107 Carbon Dioxide 23 Anion Gap 7 BUN 25 H Creatinine 0.78 Est GFR ( Amer) > 60 Glucose 105 Calcium 8.6 04/19/20 22:31 Blood Blood Culture (PCR) - Final Escherichia Coli 04/19/20 22:05 Blood Blood Culture (PCR) - Final Escherichia Coli 04/19/20 04/19/20 04/20/20 22:05 22:05 01:32 Troponin I 0.044 0.049 NT-Pro-B Natriuret Pep [id number] H Impressions: Chest X-Ray 04/19/20 22:34 IMPRESSION: Small left basilar effusion-opacity. Chronic cardiac enlargement. Head CT 04/19/20 23:07 IMPRESSION: No acute findings. Abdomen Ultrasound 04/19/20 23:47 IMPRESSION: 1. Gallbladder not definitively visualized and may be surgically absent. In the setting of cholecystectomy, enlargement of the common bile duct to 8.1 mm may be due to postcholecystectomy state. Clinical correlation is advised. 2. Mild hepatomegaly. Increased echogenicity of the hepatic parenchyma is nonspecific but can be seen in the setting of hepatic steatosis. Clinical correlation is advised. 3. Complex appearing cystic structure associated with the right kidney measuring up to 7.2 cm. This finding is incompletely evaluated with this technique and further evaluation with multiphase CT or MRI is recommended. 4. Free fluid in the right upper quadrant is a nonspecific finding. Abdomen/Pelvis CT 04/20/20 01:12 IMPRESSION: Artifact from the patient's arms. Imaging is degraded by patient motion, with resultant artifact. The best possible images were obtained. Small bilateral pleural effusions. Adjacent airspace disease mostly compressive atelectasis. No acute intra-abdominal process is seen.. Chest CT 04/20/20 01:12 IMPRESSION: Artifact from the patient's arms. Imaging is degraded by patient motion, with resultant artifact. The best possible images were obtained. Small bilateral pleural effusions. Adjacent airspace disease mostly compressive atelectasis. No acute intra-abdominal process is seen.. Assessment and Plan - Diagnosis (1) Bacteremia Is this a current diagnosis for this admission?: Yes Plan: Blood culture (1 bottle each set) with E. Coli Repeat blood culture pending. Sputum cultures pending. Urine culture negative at 1 day. Urinalysis negative for UTI. Continue IV Rocephin. Infectious diseases consulted as I do not believe that the patient's pneumonia is the source of his bacteremia. (2) Pneumonia Qualifiers: Pneumonia type: due to unspecified organism Laterality: unspecified laterality Lung location: unspecified part of lung Qualified Code(s): J18.9 - Pneumonia, unspecified organism Is this a current diagnosis for this admission?: Yes Plan: Possible aspiration pneumonitis versus bibasilar pneumonia. Leukocytosis has resolved, remains afebrile. Continues to maintain saturations in the mid 90s, comfortably, on room air. Blood culture (1 bottle each set) with E. Coli Repeat blood culture pending. Sputum cultures pending. Patient was admitted to [facility] on continuous cardiac telemetry. He is provided supplemental oxygen as needed to maintain oxygen saturations greater than 89%. He is empirically placed on IV azithromycin and Rocephin. Scheduled and as needed nebulizer treatments. Encourage pulmonary toilet. Robitussin as needed. (3) Acute encephalopathy Is this a current diagnosis for this admission?: Yes Plan: Complicated by dementia and acute infection. Unclear baseline. Head CT benign. Supportive care Fall precautions. Management of pneumonia as above. (4) Anemia Qualifiers: Anemia type: iron deficiency Is this a current diagnosis for this admission?: Yes Plan: Anemia panel reveals iron deficiency. Start iron supplementation with meals. Follow-up CBC. (5) Atrial fibrillation Qualifiers: Atrial fibrillation type: chronic Is this a current diagnosis for this admission?: Yes Plan: Rate controlled on home dose carvedilol and digoxin. Monitor on telemetry. Coumadin dosing per pharmacy. (6) Diabetes Qualifiers: Diabetes mellitus type: type 2 Diabetes mellitus group home insulin use: without group home use Diabetes mellitus complication status: without complication Qualified Code(s): E11.9 - Type 2 diabetes mellitus without complications Is this a current diagnosis for this admission?: Yes Plan: Aic 6.4% Holding oral medications while admitted. Patient is placed on a consistent carb diet. Accu-Cheks before meals and at bedtime with Humalog for sliding scale coverage. Hypoglycemia protocol in place. (7) CHF (congestive heart failure) Qualifiers: Heart failure type: unspecified Heart failure chronicity: unspecified Qualified Code(s): I50.9 - Heart failure, unspecified Is this a current diagnosis for this admission?: Yes Plan: proBNP 31k Pitting edema BLE. Continue home dose Carvedilol, and Digoxin. Furosemide 20 mg Resume lisinopril as blood pressures allow. Cardiac diet. Daily weight. Strict I&Os (8) Chronic anticoagulation Is this a current diagnosis for this admission?: Yes Plan: Coumadin per pharmacy. - Time Time Spent with patient: 25-34 minutes Medications reviewed and adjusted accordingly: Yes Anticipated discharge: Home with Homehealth
[2020-04-21 19:30] LABS: C DIFFICILE GDH NEGATIVE (NEGATIVE)
[2020-04-21] MEDS: CEFTRIAXONE 1 GM/D5W RTU 1 GM/50 ML RTUPB IV SCH (22:00)
[2020-04-21] MEDS: AZITHROMYCIN 500 MG in DEXTROSE 5%-WATER 250 ML IV SCH (22:00)
[2020-04-21] MEDS: DIGOXIN 0.125 MG TABLET PO SCH (22:00)
[2020-04-22] MEDS: IPRATROPIUM/ALBUTEROL 0.5-2.5 MG/3 ML AMPUL NEB SCH ×3 (00:03→20:02)
[2020-04-22 05:26] LABS: HEMATOCRIT 30.7 % (37.9-51.0); HEMOGLOBIN 10.1 g/dL (13.5-17.0); MEAN CORPUSCULAR HEMOGLOBIN 25.5 pg (27.0-33.4); MEAN CORPUSCULAR HGB CONC 32.8 g/dL (32.0-36.0); MEAN CORPUSCULAR VOLUME 78 fl (80-97); PLATELET COUNT 127 10^3/uL (150-450); RED BLOOD COUNT 3.95 10^6/uL (4.35-5.55); RED CELL DISTRIBUTION WIDTH 20.8 % (11.5-14.0); WHITE BLOOD COUNT 7.8 10^3/uL (4.0-10.5)
[2020-04-22 05:45] LABS: INTERNATIONAL RATION (INR) 3.42; PROTHROMBIN TIME 35.3 SEC (11.4-15.4)
[2020-04-22 05:46] LABS: ANION GAP 5 (5-19); BLOOD UREA NITROGEN 25 mg/dL (7-20); CALCIUM 8.5 mg/dL (8.4-10.2); CARBON DIOXIDE 26 mmol/L (22-30); CHLORIDE 105 mmol/L (98-107); GLUCOSE 117 mg/dL (75-110); POTASSIUM 3.7 mmol/L (3.6-5.0)
[2020-04-22] MEDS: INSULIN LISPRO 100 UNIT/ML 3 ML VIAL SUBCUT SCH ×4 (08:28→22:33)
[2020-04-22] MEDS: DONEPEZIL HCL 5 MG TABLET PO SCH (09:52)
[2020-04-22] MEDS: CARVEDILOL 12.5 MG TABLET PO SCH ×2 (09:52→17:10)
[2020-04-22] MEDS: ESCITALOPRAM OXALATE 10 MG TABLET PO SCH (09:53)
[2020-04-22] MEDS: FUROSEMIDE 40 MG TABLET PO SCH (09:53)
[2020-04-22] MEDS: FLUTICASONE NASAL SPRAY 50 MCG/SPRY 120 SPRAY/16 GM NASL SCH ×2 (09:54→23:46)
[2020-04-22] MEDS: LEVOTHYROXINE SODIUM 0.075 MG TABLET PO SCH (09:54)
--- NOTE | 2020-04-22 10:32 | PDOC PROGRESS REPORT ---
Subjective Progress Note for:: 04/22/20 Subjective:: JOSE C JUSTICE is a 84 year old male with a past medical history of atrial fibrillation with a permanent pacemaker, diabetes, hypertension, hypothyroidism, dementia who was admitted 04/20/2020 with acute encephalopathy secondary to pneumonia. Patient was seen on morning rounds. He is found sitting up to bed, comfortably, on room air eating his breakfast. He states he feels well today. He is orientated to self, place, and year. He seemed confused abotu situation, but then recalled us talking about pneumonia later in the conversation. He appears to be comfortable and has not noted to be in any acute distress. He did deny fever, chest pain, dyspnea, cough, abdominal pain, nausea and diarrhea. No concerns per nursing staff. 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 ABSENT: scleral icterus Mouth exam: PRESENT: moist, tongue midline Respiratory exam: PRESENT: clear to auscultation joao, symmetrical, unlabored, other - room air. ABSENT: rales, rhonchi, wheezes Cardiovascular exam: PRESENT: RRR. ABSENT: diastolic murmur, rubs, systolic murmur Pulses: PRESENT: normal dorsalis pedis pul Vascular exam: PRESENT: normal capillary refill Extremities exam: PRESENT: full ROM, +1 edema - BLE. ABSENT: calf tenderness, clubbing, pedal edema Neurological exam: PRESENT: alert, awake, oriented to person, oriented to place, oriented to time, CN II-XII grossly intact, other - forgetfull, intermittently pleasantly confused. ABSENT: oriented to situation, motor sensory deficit Psychiatric exam: PRESENT: appropriate affect, normal mood. ABSENT: homicidal ideation, suicidal ideation Skin exam: PRESENT: dry, intact, warm. ABSENT: cyanosis, rash Results Laboratory Results: 04/22/20 04:11 04/22/20 04:11 04/21/20 04/22/20 04/22/20 18:20 04:11 04:11 WBC 7.8 RBC 3.95 L Hgb 10.1 L Hct 30.7 L MCV 78 L MCH 25.5 L MCHC 32.8 RDW 20.8 H Plt Count 127 L Sodium 135.5 L Potassium 3.7 Chloride 105 Carbon Dioxide 26 Anion Gap 5 BUN 25 H Creatinine 0.85 Est GFR ( Amer) > 60 Glucose 117 H Calcium 8.5 Stool for White Cells NO WBCs SEEN 04/19/20 22:50 Clean Catch Midstream Urine Culture - Final NO GROWTH 2 DAYS 04/19/20 22:31 Blood Blood Culture (PCR) - Final Escherichia Coli 04/19/20 22:05 Blood Blood Culture (PCR) - Final Escherichia Coli 04/19/20 04/19/20 04/20/20 22:05 22:05 01:32 Troponin I 0.044 0.049 NT-Pro-B Natriuret Pep [id number] H Impressions: Chest X-Ray 04/19/20 22:34 IMPRESSION: Small left basilar effusion-opacity. Chronic cardiac enlargement. Head CT 04/19/20 23:07 IMPRESSION: No acute findings. Abdomen Ultrasound 04/19/20 23:47 IMPRESSION: 1. Gallbladder not definitively visualized and may be surgically absent. In the setting of cholecystectomy, enlargement of the common bile duct to 8.1 mm may be due to postcholecystectomy state. Clinical correlation is advised. 2. Mild hepatomegaly. Increased echogenicity of the hepatic parenchyma is nonspecific but can be seen in the setting of hepatic steatosis. Clinical correlation is advised. 3. Complex appearing cystic structure associated with the right kidney measuring up to 7.2 cm. This finding is incompletely evaluated with this technique and further evaluation with multiphase CT or MRI is recommended. 4. Free fluid in the right upper quadrant is a nonspecific finding. Abdomen/Pelvis CT 04/20/20 01:12 IMPRESSION: Artifact from the patient's arms. Imaging is degraded by patient motion, with resultant artifact. The best possible images were obtained. Small bilateral pleural effusions. Adjacent airspace disease mostly compressive atelectasis. No acute intra-abdominal process is seen.. Chest CT 04/20/20 01:12 IMPRESSION: Artifact from the patient's arms. Imaging is degraded by patient motion, with resultant artifact. The best possible images were obtained. Small bilateral pleural effusions. Adjacent airspace disease mostly compressive atelectasis. No acute intra-abdominal process is seen.. Assessment and Plan - Diagnosis (1) Bacteremia Is this a current diagnosis for this admission?: Yes Plan: Blood culture (1 bottle each set) with E. Coli Repeat blood culture negative at 24 hours Sputum cultures not yet obtained Stool culture pending. Stool negative for C. difficile and WBCs. Urine culture negative at 1 day. Urinalysis negative for UTI. Continue IV Rocephin. Infectious diseases consulted as I do not believe that the patient's pneumonia is the source of his bacteremia. (2) Pneumonia Qualifiers: Pneumonia type: due to unspecified organism Laterality: unspecified laterality Lung location: unspecified part of lung Qualified Code(s): J18.9 - Pneumonia, unspecified organism Is this a current diagnosis for this admission?: Yes Plan: Improved; Leukocytosis has resolved, remains afebrile. Continues to maintain saturations in the mid 90s, comfortably, on room air. Possible aspiration pneumonitis versus bibasilar pneumonia. Blood culture (1 bottle each set) with E. Coli Repeat blood culture negative Sputum cultures pending. Patient was admitted to [facility] on continuous cardiac telemetry. He is provided supplemental oxygen as needed to maintain oxygen saturations greater than 89%. He is empirically placed on IV azithromycin and Rocephin. Consider disconti nuing Azithromycin after 3rd dose as patient remains afebrile with nml WBCs. Scheduled and as needed nebulizer treatments. Encourage pulmonary toilet. Robitussin as needed. (3) Acute encephalopathy Is this a current diagnosis for this admission?: Yes Plan: Improved orientation. Unclear baseline. Complicated by dementia and acute infection. Head CT benign. Supportive care Fall precautions. Management of pneumonia as above. (4) Anemia Qualifiers: Anemia type: iron deficiency Is this a current diagnosis for this admission?: Yes Plan: Anemia panel reveals iron deficiency. Start iron supplementation with meals. Follow-up CBC. (5) Atrial fibrillation Qualifiers: Atrial fibrillation type: chronic Is this a current diagnosis for this admission?: Yes Plan: Rate controlled on home dose carvedilol and digoxin. Monitor on telemetry. Coumadin dosing per pharmacy. (6) Diabetes Qualifiers: Diabetes mellitus type: type 2 Diabetes mellitus residential insulin use: without residential use Diabetes mellitus complication status: without co mplication Qualified Code(s): E11.9 - Type 2 diabetes mellitus without co mplications Is this a current diagnosis for this admission?: Yes Plan: Aic 6.4% Holding oral medications while admitted. Patient is placed on a consistent carb diet. Accu-Cheks before meals and at bedtime with Humalog for sliding scale coverage. Hypoglycemia protocol in place. (7) CHF (congestive heart failure) Qualifiers: Heart failure type: unspecified Heart failure chronicity: unspecified Qualified Code(s): I50.9 - Heart failure, unspecified Is this a current diagnosis for this admission?: Yes Plan: proBNP 31k Pitting edema BLE; decreased today. Echocardiogram pending. Follow up BNP Continue home dose Lisinopril, Carvedilol, and Digoxin. Furosemide increased to 40 mg daily Cardiac diet. Daily weight. Strict I&Os (8) Chronic anticoagulation Is this a current diagnosis for this admission?: Yes Plan: Coumadin per pharmacy. - Time Time Spent with patient: 25-34 minutes Medications reviewed and adjusted accordingly: Yes Anticipated discharge: Home with Homehealth
[2020-04-22] MEDS: LISINOPRIL 10 MG TABLET PO SCH (11:00)
[2020-04-22 14:34] LABS: ALBUMIN 2.5 g/dL (3.5-5.0); ALKALINE PHOSPHATASE 34 U/L (38-126); ASPARTATE AMINO TRANSFERASE 43 U/L (17-59); BILIRUBIN,DIRECT 1.3 mg/dL (0.0-0.4); BILIRUBIN,TOTAL 2.5 mg/dL (0.2-1.3); TOTAL PROTEIN 5.2 g/dL (6.3-8.2)
[2020-04-22] MEDS: CEFTRIAXONE 1 GM/D5W RTU 1 GM/50 ML RTUPB IV SCH (23:46)
[2020-04-22] MEDS: DIGOXIN 0.125 MG TABLET PO SCH (23:46)
[2020-04-23] MEDS: AZITHROMYCIN 500 MG in DEXTROSE 5%-WATER 250 ML IV SCH (00:33)
[2020-04-23 05:59] LABS: INTERNATIONAL RATION (INR) 2.91
[2020-04-23 06:18] LABS: ANION GAP 8 (5-19); BLOOD UREA NITROGEN 27 mg/dL (7-20); CALCIUM 8.5 mg/dL (8.4-10.2); CARBON DIOXIDE 24 mmol/L (22-30); CHLORIDE 103 mmol/L (98-107); GLUCOSE 92 mg/dL (75-110); POTASSIUM 3.9 mmol/L (3.6-5.0)
[2020-04-23] MEDS: LEVOTHYROXINE SODIUM 0.075 MG TABLET PO SCH (06:31)
[2020-04-23] MEDS: INSULIN LISPRO 100 UNIT/ML 3 ML VIAL SUBCUT SCH ×3 (08:06→17:01)
[2020-04-23] MEDS: IPRATROPIUM/ALBUTEROL 0.5-2.5 MG/3 ML AMPUL NEB SCH (09:03)
[2020-04-23] MEDS: FUROSEMIDE 40 MG TABLET PO SCH (09:15)
[2020-04-23] MEDS: ESCITALOPRAM OXALATE 10 MG TABLET PO SCH (09:15)
[2020-04-23] MEDS: DONEPEZIL HCL 5 MG TABLET PO SCH (09:15)
[2020-04-23] MEDS: FLUTICASONE NASAL SPRAY 50 MCG/SPRY 120 SPRAY/16 GM NASL SCH (09:15)
[2020-04-23] MEDS: LISINOPRIL 10 MG TABLET PO SCH (09:15)
[2020-04-23] MEDS: CARVEDILOL 12.5 MG TABLET PO SCH ×2 (09:15→17:02)
--- NOTE | 2020-04-23 09:23 | CDI QUERY ---
CDI Query CDI Review: Dear Provider: To better reflect your patients severity of illness, morbidity, and resource utilization Please specify and document in the Progress Notes and Discharge Summary if you are monitoring / treating / evaluating any of the following conditions: Query Clinical indicators Please specify the type and acuity of heart failure in your progress notes: Type Systolic Diastolic Combined systolic and diastolic Other heart failure (please specify) Unable to determine Acuity Acute Chronic Acute on chronic (decompensated, exacerbated) Unable to determine CHF (congestive heart failure) Qualifiers: Heart failure type: unspecified Heart failure chronicity: unspecified Qualified Code(s): I50.9 - Heart failure, unspecified Is this a current diagnosis for this admission?: Yes Plan: proBNP 31k Pitting edema BLE; decreased today. Echocardiogram pending. Follow up BNP Continue home dose Lisinopril, Carvedilol, and Digoxin. Furosemide increased to 40 mg daily Cardiac diet. Daily weight. Strict I&Os The terms probable, suspected, likely, possible or still to be ruled out may be used if you are unable to determine the exact nature of a condition. Thank you for your consideration, Clinical Documentation Physician Advisors SHAYE Garcia RN, BSN RN
[2020-04-23] MEDS ORDERED: (PENDING PHARMACY ID) (Lisinopril [Lisinopril] 20 MG) PO SCH (10:00)
[2020-04-23 10:30] LABS: HEMOGLOBIN 10.3 g/dL (13.5-17.0); MEAN CORPUSCULAR HEMOGLOBIN 25.4 pg (27.0-33.4); MEAN CORPUSCULAR HGB CONC 32.1 g/dL (32.0-36.0); MEAN CORPUSCULAR VOLUME 79 fl (80-97); PLATELET COUNT 138 10^3/uL (150-450); RED BLOOD COUNT 4.04 10^6/uL (4.35-5.55); RED CELL DISTRIBUTION WIDTH 20.6 % (11.5-14.0); WHITE BLOOD COUNT 7.2 10^3/uL (4.0-10.5)
[2020-04-23 10:31] LABS: APPEARANCE,URINE SLIGHTLY-CLOUDY; BILIRUBIN,URINE NEGATIVE (NEGATIVE); COLOR,URINE AMBER; GLUCOSE, URINE NEGATIVE (NEGATIVE); KETONES,URINE NEGATIVE (NEGATIVE); PROTEIN,URINE NEGATIVE (NEGATIVE); URINE SPECIFIC GRAVITY 1.017; UROBILINOGEN,URINE NEGATIVE mg/dL (<2.0)
--- NOTE | 2020-04-23 11:50 | Progress Note ---
Provider Note Provider Note: [facility] ID Telephone Advice Consultation Chart reviewed. Patient is an 83-year-old man with atrial fibrillation on w arfarin, pacemaker, hypertension, history of bilateral knee replacement who was taken to the ED due to altered mental status. He was found with low grade fever, leukocytosis, elevated bilirubin. CXR with possible left side opacity vs small pleural effusion. CT chest, abdomen and pelvis non revealing. US of the RUQ showed cholecystectomy and dilated CBD. He was started on ceftriaxone and azithromycin for possible CAP. Blood culture was positive for E coli. Urine culture was negative. Patient has clinically improved. PMH: Arthrtitis Hypertension Atrial fibrillation PSH: Pacemaker BL Knee replacement Allergies: niacin [From Niaspan] Allergy (Mild, Verified 04/20/20 00:33) hotflashes lasting several hours Medications: Atorvastatin Calcium [Lipitor] 80 mg PO DAILY 04/20/20 Carvedilol [Coreg] 25 mg PO BID 04/20/20 Digoxin 125 mcg PO QHS 04/20/20 Donepezil HCl [Aricept] 5 mg PO DAILY 04/20/20 Ergocalciferol (Vitamin D2) [Vitamin D2] 1,250 mcg PO SA@1000 04/20/20 Escitalopram Oxalate [Lexapro] 10 mg PO DAILY 04/20/20 Fenofibrate 160 mg PO DAILY 04/20/20 Glipizide [Glipizide Xl] 5 mg PO DAILY 04/20/20 Levothyroxine Sodium [Synthroid 0.075 mg Tablet] 0.075 mg PO DAILY 04/20/20 Lisinopril 20 mg PO DAILY 04/20/20 Nitroglycerin [Nitrostat 0.4 mg (1/150 Gr) Tabs 25/Bottle] 1 tab SL Q5MP PRN 04/20/20 Torsemide 5 mg PO DAILY 04/20/20 Vitamin B Complex 1 each PO DAILY 04/20/20 Warfarin Sodium 1.25 mg PO MOFR 04/20/20 Warfarin Sodium 2.5 mg PO SUTUWETHSA 04/20/20 Vital Signs: Temp Pulse Resp BP Pulse Ox 97.4 F 73 17 118/71 98 04/22/20 15:56 04/22/20 15:56 04/22/20 15:56 04/22/20 15:56 04/22/20 15:56 Intake & Output 04/21/20 04/22/20 04/23/20 06:59 06:59 06:59 Intake Total 1290 540 954 Balance 1290 540 954 Weight 92.1 kg 91.9 kg Weight/Height Weight 91.9 kg Height 6 ft Laboratories: 04/22/20 04:11 04/22/20 04:11 MCV 78 fl (80-97) L 04/22/20 04:11 MCH 25.5 pg (27.0-33.4) L 04/22/20 04:11 MCHC 32.8 g/dL (32.0-36.0) 04/22/20 04:11 RDW 20.8 % (11.5-14.0) H 04/22/20 04:11 Seg Neutrophils % 85.4 % (42-78) H 04/21/20 04:59 Retic Count (auto) 1.99 % (0.66-2.85) 04/20/20 06:19 VBG pH 7.45 (7.30-7.42) H 04/19/20 22:31 VBG pCO2 33.5 mmHg (35-63) L 04/19/20 22:31 VBG HCO3 22.6 mmol/L (20-32) 04/19/20 22:31 VBG Base Excess -0.8 mmol/L 04/19/20 22:31 Chloride 105 mmol/L (98-107) 04/22/20 04:11 Carbon Dioxide 26 mmol/L (22-30) 04/22/20 04:11 Anion Gap 5 (5-19) 04/22/20 04:11 Est GFR ( Amer) > 60 (>60) 04/22/20 04:11 Glucose 117 mg/dL (75-110) H 04/22/20 04:11 Lactic Acid 1.5 mmol/L (0.7-2.1) 04/20/20 06:19 Calcium 8.5 mg/dL (8.4-10.2) 04/22/20 04:11 Iron 20.3 ug/dL (49-181) L 04/20/20 06:19 TIBC 349 ug/dL (250-450) 04/20/20 06:19 % Saturation 6 % 04/20/20 06:19 Transferrin 310.18 mg/dL (206.00-381.00) 04/20/20 06:19 Ferritin 83.60 ng/mL (17.9-464.0) 04/20/20 06:19 Total Bilirubin 2.5 mg/dL (0.2-1.3) H 04/22/20 04:11 AST 43 U/L (17-59) 04/22/20 04:11 Alkaline Phosphatase 34 U/L (38-126) L 04/22/20 04:11 Ammonia 13.0 umol/L (9-33) 04/20/20 01:32 Total Protein 5.2 g/dL (6.3-8.2) L 04/22/20 04:11 Albumin 2.5 g/dL (3.5-5.0) L 04/22/20 04:11 Lipase 244.4 U/L (23-300) 04/19/20 22:05 Vitamin B12 536.0 pg/mL (239-931) 04/20/20 06:19 Folate 13.60 ng/mL (>2.76) 04/20/20 06:19 Urine Color CHA 04/19/20 22:50 Urine Appearance SLIGHTLY-CLOUDY 04/19/20 22:50 Urine pH 5.0 (5.0-9.0) 04/19/20 22:50 Ur Specific [place] 1.019 04/19/20 22:50 Urine Protein NEGATIVE mg/dL (NEGATIVE) 04/19/20 22:50 Urine Glucose (UA) NEGATIVE mg/dL (NEGATIVE) 04/19/20 22:50 Urine Ketones NEGATIVE mg/dL (NEGATIVE) 04/19/20 22:50 Urine Blood NEGATIVE (NEGATIVE) 04/19/20 22:50 Urine RBC (Auto) 4 /HPF 04/19/20 22:50 Stool for White Cells NO WBCs SEEN 04/21/20 18:20 04/19/20 22:05 Blood Blood Culture (PCR) - Final Escherichia Coli 04/19/20 22:05 Blood Blood Culture - Final Escherichia Coli 04/19/20 22:31 Blood Blood Culture (PCR) - Final Escherichia Coli 04/19/20 22:31 Blood Blood Culture - Final Escherichia Coli 04/19/20 22:50 Clean Catch Midstream Urine Culture - Final NO GROWTH 2 DAYS 04/19/20 04/19/20 04/20/20 22:05 22:05 01:32 Troponin I 0.044 0.049 NT-Pro-B Natriuret Pep [id number] H Radiology: Chest X-Ray 04/19/20 22:34 IMPRESSION: Small left basilar effusion-opacity. Chronic cardiac enlargement. Head CT 04/19/20 23:07 IMPRESSION: No acute findings. Abdomen Ultrasound 04/19/20 23:47 IMPRESSION: 1. Gallbladder not definitively visualized and may be surgically absent. In the setting of cholecystectomy, enlargement of the common bile duct to 8.1 mm may be due to postcholecystectomy state. Clinical correlation is advised. 2. Mild hepatomegaly. Increased echogenicity of the hepatic parenchyma is nonspecific but can be seen in the setting of hepatic steatosis. Clinical correlation is advised. 3. Complex appearing cystic structure associated with the right kidney measuring up to 7.2 cm. This finding is incompletely evaluated with this technique and further evaluation with multiphase CT or MRI is recommended. 4. Free fluid in the right upper quadrant is a nonspecific finding. Abdomen/Pelvis CT 04/20/20 01:12 IMPRESSION: Artifact from the patient's arms. Imaging is degraded by patient motion, with resultant artifact. The best possible images were obtained. Small bilateral pleural effusions. Adjacent airspace disease mostly compressive atelectasis. No acute intra-abdominal process is seen.. Chest CT 04/20/20 01:12 IMPRESSION: Artifact from the patient's arms. Imaging is degraded by patient motion, with resultant artifact. The best possible images were obtained. Small bilateral pleural effusions. Adjacent airspace disease mostly compressive atelectasis. No acute intra-abdominal process is seen.. Assessment and Recommendations: Patient evaluated due to E coli bacteremia from unknown source. Patient's symptoms were related to mental status for which there was concern for infection including aspiration pneumonia. Blood culture positive for E coli, high grade bacteremia. Potential sources include GI translocation but CT scan not demonstrating any intestinal process. He did have elevated bilirubin and dilated CBD for which I believe that was probably the site where this bacteria translocated. It might have been transient, can repeat bilirubin levels. The other possible site would be cardiac device infection which is less common, but might need to rule out involvement of the cardiac device with CHRISTINE. Ceftriaxone 2g IV daily is adequate. If there is a decrease in bilirubin and no source control needed in the biliary tract and CHRISTINE is negative, then will assume this was transient translocation of bacteria from the biliary tract and treat for 14 days. As patient has a cardiac device, IV antibiotic therapy is recommended. Please call if updates or questions. Christina Montez MD U ID [id number]
--- NOTE | 2020-04-23 13:03 | XCELERA REPORT ---
[address] [address] Transthoracic Echocardiogram Report Name: JOSE C JUSTICE Age: 84 yrs Gender: Male : 1935 Patient Status: Inpatient Patient Location: [address] [place], [place] [address] Study Date: 04/22/2020 02:07 PM History: CHF Height: 72 in Weight: 199 lb BSA: 2.1 m2 Procedure: A complete two-dimensional transthoracic echocardiogram was performed (2D, M-mode, spectral and color flow Doppler). The study was technically difficult with many images being suboptimal in quality. Reason For Study: CHF Ordering Physician: SANA PAVON Performed By: Fallon Pedersen Interpretation Summary Left ventricular systolic function is severely reduced. LVEF estimated at 15-20% The right ventricular systolic function is moderately reduced. There is a moderate amount of mitral regurgitation There is a mild to moderate amount of aortic regurgitation There is a mild amount of tricuspid regurgitation There is mild pulmonary hypertension by echo There is no pericardial effusion. MMode/2D Measurements & Calculations RVDd: 3.0 cm LVIDd: 6.6 cm FS: 6.7 % Ao root diam: 3.6 cm IVSd: 1.2 cm LVIDs: 6.2 cm EDV(Teich): 226.0 ml Ao root area: 10.3 cm2 LVPWd: 1.1 cm ESV(Teich): 193.1 ml EF(Teich): 14.6 % Doppler Measurements & Calculations MV E max kailyn: MV dec slope: Ao V2 max: AI max kailyn: 165.8 cm/sec 923.3 cm/sec2 104.1 cm/sec 432.4 cm/sec MV A max kailyn: MV dec time: Ao max PG: AI max P.8 mmHg 45.4 cm/sec 0.18 sec 8.6 mmHg AI dec slope: MV E/A: 3.7 Ao V2 mean: 178.8 cm/sec2 171.6 cm/sec AI P1/2t: 708.1 msec Ao mean P.6 mmHg Ao V2 VTI: 58.1 cm LV V1 max PG: MR max kailyn: PA V2 max: TR max kailyn: 1.4 mmHg 469.1 cm/sec 49.7 cm/sec 218.4 cm/sec LV V1 mean PG: MR max P.0 mmHg PA max PG: TR max P.1 mmHg 0.81 mmHg 0.99 mmHg LV V1 max: 58.3 cm/sec LV V1 mean: 42.7 cm/sec LV V1 VTI: 9.4 cm Left Ventricle The left ventricle is moderately dilated. There is moderate concentric left ventricular hypertrophy. Left ventricular systolic function is severely reduced. LVEF estimated at 15-20%. LV diastolic function not assessed. There is severe global hypokinesis of the left ventricle. Right Ventricle The right ventricle is moderately dilated. The right ventricular systolic function is moderately reduced. Atria The right atrium is severely dilated. There is a catheter/pacemaker lead seen in the right atrium. The left atrium is severely dilated. Mitral Valve The mitral valve is grossly normal. There is a moderate amount of mitral regurgitation. Aortic Valve The aortic valve is mildly calcified. The aortic valve is sclerotic and shows some degree of functional abnormality. The aortic valve opens well. The aortic valve is not well visualized secondary to technical limitations. There is mild aortic stenosis. Mean gradient =13 mm Hg Peak AoV=2.08 m/s. There is a mild to moderate amount of aortic regurgitation. Tricuspid Valve The tricuspid valve is normal in structure and function. There is a mild amount of tricuspid regurgitation. There is mild pulmonary hypertension by echo. Best estimated right ventricular systolic pressure is elevated at 30- 40mmHg. Pulmonic Valve The pulmonic valve is not well seen, but is grossly normal. Great Vessels The aortic root is normal size. The inferior vena cava appeared dilated and decreased < 50% with respiration (RAP 15-20 mmHg). Effusions There is no pericardial effusion. : SANA PAVON Anil
[2020-04-23] MEDS ORDERED: FUROSEMIDE INJ/PF 20 MG/2 ML SDV IV ONE (14:00)
[2020-04-23 14:25] LABS: CREATINE KINASE MB 0.64 ng/mL (<4.55); TROPONIN I 0.028 ng/mL
--- NOTE | 2020-04-23 14:38 | RADIOLOGY REPORT (SQ) ---
EXAM DESCRIPTION: CHEST SINGLE VIEW IMAGES COMPLETED DATE/TIME: 04/23/2020 2:14 pm REASON FOR STUDY: dyspnea COMPARISON: 04/19/2020 NUMBER OF VIEWS: One view. TECHNIQUE: Single frontal radiographic view of the chest acquired. LIMITATIONS: None. FINDINGS: LUNGS AND PLEURA: Small pleural effusions bilaterally. MEDIASTINUM AND HILAR STRUCTURES: No masses or contour abnormality. HEART AND VASCULATURE: Cardiac enlargement. Vascular congestion. BONES: No acute findings. HARDWARE: Left defibrillator. OTHER: No other significant finding. IMPRESSION: CARDIAC ENLARGEMENT. VASCULAR CONGESTION. TECHNICAL DOCUMENTATION: JOB ID: [id number] 2010 [employer]- All Rights Reserved Reading location - IP/workstation name: [email or web address]
--- NOTE | 2020-04-23 15:51 | PDOC TRANSFER SUMMARY ---
General Admission Date/PCP: 04/20/20 04:45 ANDREEA CROWELL MD Admission Date: 04/20/20 Transfer Date: 04/23/20 Accepting Facility: [facility] Accepting Physician: Dr. John Resuscitation Status: Full Code - Transfer Diagnosis (1) Acute on chronic combined systolic and diastolic congestive heart failure Is this a current diagnosis for this admission?: Yes (2) Bacteremia Is this a current diagnosis for this admission?: Yes (3) Pneumonia Is this a current diagnosis for this admission?: Yes (4) Acute encephalopathy Is this a current diagnosis for this admission?: Yes (5) Anemia Is this a current diagnosis for this admission?: Yes (6) Atrial fibrillation Is this a current diagnosis for this admission?: Yes (7) Diabetes Is this a current diagnosis for this admission?: Yes (8) Chronic anticoagulation Is this a current diagnosis for this admission?: Yes - Transfer Medications Home Medications: Atorvastatin Calcium [Lipitor] 80 mg PO DAILY 04/20/20 Carvedilol [Coreg] 25 mg PO BID 04/20/20 Digoxin 125 mcg PO QHS 04/20/20 Donepezil HCl [Aricept] 5 mg PO DAILY 04/20/20 Ergocalciferol (Vitamin D2) [Vitamin D2] 1,250 mcg PO SA@1000 04/20/20 Escitalopram Oxalate [Lexapro] 10 mg PO DAILY 04/20/20 Fenofibrate 160 mg PO DAILY 04/20/20 Glipizide [Glipizide Xl] 5 mg PO DAILY 04/20/20 Levothyroxine Sodium [Synthroid 0.075 mg Tablet] 0.075 mg PO DAILY 04/20/20 Lisinopril 20 mg PO DAILY 04/20/20 Nitroglycerin [Nitrostat 0.4 mg (1/150 Gr) Tabs 25/Bottle] 1 tab SL Q5MP PRN 04/20/20 Torsemide 5 mg PO DAILY 04/20/20 Vitamin B Complex 1 each PO DAILY 04/20/20 Warfarin Sodium 1.25 mg PO MOFR 04/20/20 Warfarin Sodium 2.5 mg PO SUTUWETHSA 04/20/20 Transfer Medications: Current Medications Albuterol/Ipratropium (Duoneb 3 Ml Ampul) 3 ml NEB [id number] PRN PRN Reason: SHORTNESS OF BREATH Stop: 07/06/20 04:38 Albuterol/Ipratropium (Duoneb 3 Ml Ampul) 3 ml NEB RTQ12 [facility] Stop: 05/22/20 19:59 Last Admin: 04/23/20 09:03 Dose: 3 ml Documented by: Carvedilol (Coreg 12.5 Mg Tablet) 25 mg PO BID [facility] Stop: 05/20/20 17:59 Last Admin: 04/23/20 09:15 Dose: 25 mg Documented by: Dextrose (Dextrose Inj 50% Syringe (25 Gm/50 Ml)) 12.5 gm IV PRN PRN; Protocol PRN Reason: FOR BG 50-69 IN ALERT PATIENT Stop: 05/20/20 11:58 Dextrose (Dextrose Inj 50% Syringe (25 Gm/50 Ml)) 25 gm IV PRN PRN; Protocol PRN Reason: PER PROTOCOL Stop: 05/20/20 11:58 Digoxin (Lanoxin 0.125 Mg Tablet) 0.125 mg PO QHS [facility] Stop: 05/20/20 21:59 Last Admin: 04/22/20 23:46 Dose: 0.125 mg Documented by: Donepezil HCl (Aricept 5 Mg Tablet) 5 mg PO DAILY [facility] Stop: 05/20/20 09:59 Last Admin: 04/23/20 09:15 Dose: 5 mg Documented by: Escitalopram Oxalate (Lexapro 10 Mg Tablet) 10 mg PO DAILY [facility] Stop: 05/20/20 09:59 Last Admin: 04/23/20 09:15 Dose: 10 mg Documented by: Fluticasone Propionate (Flonase Nasal [place] 50 Mcg/[place] 16 Gm) 2 spray NASL Q12 [facility] Stop: 05/20/20 09:59 Last Admin: 04/23/20 09:15 Dose: 2 spr Documented by: Furosemide (Lasix Inj/Pf 20 Mg/2 Ml Sdv) 20 mg IV Q12 [facility] Stop: 05/23/20 21:59 Glucagon (Glucagen Inj 1 Mg Vial) 1 mg IM PRN PRN; Protocol PRN Reason: Evaluate for BG < 70 Stop: 05/20/20 11:58 Glucose (Glutose 40% Gel 15 Gm Tube) 15 gm PO PRN PRN; Protocol PRN Reason: FOR BG 50-69 IN ALERT PATIENT Stop: 05/20/20 11:58 Glucose (Glutose 40% Gel 15 Gm Tube) 30 gm PO PRN PRN; Protocol PRN Reason: FOR BG < 50 IN ALERT PATIENT Stop: 05/20/20 11:58 Guaifenesin (Robitussin Syrup 200 Mg/10 Ml Ud Cup) 200 mg PO Q4HP PRN PRN Reason: COUGH Stop: 05/20/20 04:38 Ceftriaxone Sodium/Dextrose (Rocephin Rtu 1 Gm/D5w 50 Ml Premix) 1 gm in 50 mls @ 100 mls/hr IV QHS [facility] Stop: 04/27/20 21:59 Last Infusion: 04/23/20 00:33 Dose: Infused Documented by: Insulin Human Lispro (Humalog Insulin 100 Unit/1 Ml 3 Ml Vial) 0 - 12 unit SUBCUT [facility]; Protocol Stop: 05/20/20 15:59 Last Admin: 04/23/20 12:15 Dose: 2 unit Documented by: Levothyroxine Sodium (Synthroid 0.075 Mg Tablet) 0.075 mg PO Q6AM [facility] Stop: 05/22/20 09:59 Last Admin: 04/23/20 06:31 Dose: 0.075 mg Documented by: Lisinopril (Prinivil 10 Mg Tablet) 20 mg PO DAILY [facility] Stop: 05/22/20 09:59 Last Admin: 04/23/20 09:15 Dose: 20 mg Documented by: Sodium Chloride (Saline Flush 2.5 Ml Monoject Prefil Syrin) 2.5 ml IV Q8 [facility] Stop: 05/20/20 05:59 Last Admin: 04/23/20 13:15 Dose: 2.5 ml Documented by: Warfarin Sodium (Coumadin 2 Mg Tablet) 2 mg PO QHS [facility] Stop: 05/23/20 21:59 - Allergies Allergies/Adverse Reactions: niacin [From Niaspan] Allergy (Mild, Verified 04/20/20 00:33) hotflashes lasting several hours - Diet/Activity Discharge Diet: Cardiac, Diabetic Hospital Course Hospital Course: Per H&P by Dr. Cervantes:JOSE C JUSTICE is a 84 year old male with a past medical history of atrial fibrillation with a permanent pacemaker, diabetes, hypertension, hypothyroidism, dementia who lives alone presents with fever and confusion. In the emergency department he is found to have a congested cough, tachypnea and a fever of 100.0. No leukocytosis but a left shift extensive imaging is unremarkable with exception to bibasilar atelectasis versus infiltrate and a large 7 cm renal cyst. Patient denies shortness of breath nausea vomiting or pain. He is socially appropriate but a poor historian and unable to provide additional history. Course: (1) Bacteremia Blood culture (1 bottle each set) with E. Coli Repeat blood culture negative at 48 hours Sputum cultures not yet obtained; does not have a productive cough Stool culture pending. Stool negative for C. difficile and WBCs. Urine culture negative. Urinalysis negative for UTI x2. Continue IV Rocephin. Infectious Diseases consulted. Dr. Montez ([facility]) recommends CHRISTINE to evaluate pacemaker/AICD hardware and wires; if normal, may consider the source of the bacteremia is translocation from his gut (related to common bile duct dilatation noted on ultrasound imaging and associated with elevated bilirubin levels). In which case, she would recommend continuing ceftriaxone 2 g IV daily for 14 days. EOT 05/05/2020 (2) Pneumonia Low suspicion for PNA. It is more likely that he patients symptoms are r/t bacteremia and acute CHF exacerbation. Leukocytosis has resolved, remains afebrile. Continues to maintain saturations in the mid 90s, comfortably, on room air. Possible aspiration pneumonitis versus bibasilar pneumonia noted on CT imagining. Blood culture (1 bottle each set) with E. Coli Repeat blood culture negative Sputum cultures pending. Patient was admitted to [facility] on continuous cardiac telemetry and supported with supplemental oxygen and nebulizer treatments. He was empirically placed on IV azithromycin and Rocephin. Azithromycin was discontinued after 3 doses as patient remains afebrile with nml WBCs and low suspicion for PNA. (3) Acute encephalopathy Improved orientation. Unclear baseline. Complicated by dementia and acute infection. Head CT benign. (4) Anemia Anemia panel reveals iron deficiency. Placed on oral iron supplementation with meals. (5) Atrial fibrillation Rate controlled on home dose carvedilol and digoxin. Coumadin dosing per pharmacy. INR 4.77-> 3.96-> 3.42-> 2.91 Intermittent a. fib on telemetry with frequent multiform PVCs. (6) Diabetes A1C 6.4% Holding oral medications while admitted. Consistent carb diet. Accu-Cheks before meals and at bedtime with Humalog for sliding scale coverage. (7) Acute on chronic combined systolic and diasolic CHF (congestive heart failure) proBNP 31k-> 28k Troponin 0.044-> 0.049-> 0.028 Bibasilar rales, increased work of breathing, and (+)1 pitting edema BLE Echocardiogram revealed LVEF 15-20% with severe hypokinesis of the LV and mild pulmonary HTN Followed by Dr. Gambino at [facility]. Have arranged for transfer to [facility] under the care of Dr. John with Dr. Gambino consulting. Continue home dose Lisinopril, Carvedilol, and Digoxin. Increased Furosemide to 20 mg IV BID Cardiac diet. Daily weight. Strict I&Os were, admittedly, poorly kept; weight is up 3kg. Jacinto placed today for strict output. Has Pacemaker/AICD; Infectious Disease has recommended CHRISTINE to evaluate for vegetations once cardiac status has stabilized. (8) Chronic anticoagulation Coumadin per pharmacy. Physical Exam Vital Signs: Temp Pulse Resp BP Pulse Ox 97.6 F 59 L 15 115/61 99 04/23/20 11:42 04/23/20 14:00 04/23/20 11:42 04/23/20 11:42 04/23/20 11:42 Intake & Output 04/22/20 04/23/20 04/24/20 06:59 06:59 06:59 Intake Total 540 1654 237 Output Total 200 Balance 540 1654 37 Weight 91.9 kg 92.7 kg 92.7 kg General appearance: PRESENT: no acute distress, cooperative, hard of hearing, well-developed, well-nourished Head exam: PRESENT: atraumatic, normocephalic Eye exam: PRESENT: conjunctiva pink, EOMI, PERRLA, other - blind Lt eye. ABSENT: scleral icterus Mouth exam: PRESENT: moist, tongue midline Respiratory exam: PRESENT: crackles - bibasilar, decreased breath sounds - throughout, symmetrical, unlabored, other - Room air. ABSENT: rales, rhonchi, wheezes Cardiovascular exam: PRESENT: irregular rhythm. ABSENT: diastolic murmur, rubs, systolic murmur Pulses: PRESENT: normal dorsalis pedis pul Vascular exam: PRESENT: normal capillary refill GI/Abdominal exam: PRESENT: normal bowel sounds, soft. ABSENT: distended, guarding, mass, organolmegaly, rebound, tenderness Rectal exam: PRESENT: deferred Gentrourinary exam: PRESENT: indwelling catheter Extremities exam: PRESENT: full ROM, pedal edema, +1 edema - BLE. ABSENT: calf tenderness, clubbing Neurological exam: PRESENT: alert, awake, oriented to person, oriented to place, oriented to time, CN II-XII grossly intact, other - Intermittent confusion /forgetfulnes; increased from yesterday. ABSENT: motor sensory deficit Psychiatric exam: PRESENT: appropriate affect, normal mood. ABSENT: homicidal ideation, suicidal ideation Skin exam: PRESENT: dry, intact, warm. ABSENT: cyanosis, rash Results Laboratory Results: 04/23/20 05:03 04/23/20 05:03 04/23/20 04/23/20 04/23/20 05:03 05:03 10:19 WBC 7.2 RBC 4.04 L Hgb 10.3 L Hct 32.0 L MCV 79 L MCH 25.4 L MCHC 32.1 RDW 20.6 H Plt Count 138 L Sodium 134.5 L Potassium 3.9 Chloride 103 Carbon Dioxide 24 Anion Gap 8 BUN 27 H Creatinine 0.81 Est GFR ( Amer) > 60 Glucose 92 Calcium 8.5 Urine Color CHA Urine Appearance SLIGHTLY-CLOUDY Urine pH 5.0 Ur Specific [place] 1.017 Urine Protein NEGATIVE Urine Glucose (UA) NEGATIVE Urine Ketones NEGATIVE Urine Blood NEGATIVE Urine RBC (Auto) 1 04/21/20 18:20 Stool - Stool - Final 04/19/20 22:05 Blood Blood Culture (PCR) - Final Escherichia Coli 04/19/20 22:05 Blood Blood Culture - Final Escherichia Coli 04/19/20 22:31 Blood Blood Culture (PCR) - Final Escherichia Coli 04/19/20 22:31 Blood Blood Culture - Final Escherichia Coli 04/19/20 04/19/20 04/20/20 22:05 22:05 01:32 Creatine Kinase CK-MB (CK-2) Troponin I 0.044 0.049 NT-Pro-B Natriuret Pep [id number] H 04/23/20 04/23/20 04/23/20 05:03 13:47 13:47 Creatine Kinase 20 L CK-MB (CK-2) 0.64 Troponin I 0.028 NT-Pro-B Natriuret Pep [id number] H Impressions: Head CT 04/19/20 23:07 IMPRESSION: No acute findings. Abdomen Ultrasound 04/19/20 23:47 IMPRESSION: 1. Gallbladder not definitively visualized and may be surgically absent. In the setting of cholecystectomy, enlargement of the common bile duct to 8.1 mm may be due to postcholecystectomy state. Clinical correlation is advised. 2. Mild hepatomegaly. Increased echogenicity of the hepatic parenchyma is nonspecific but can be seen in the setting of hepatic steatosis. Clinical correlation is advised. 3. Complex appearing cystic structure associated with the right kidney measuring up to 7.2 cm. This finding is incompletely evaluated with this technique and further evaluation with multiphase CT or MRI is recommended. 4. Free fluid in the right upper quadrant is a nonspecific finding. Abdomen/Pelvis CT 04/20/20 01:12 IMPRESSION: Artifact from the patient's arms. Imaging is degraded by patient motion, with resultant artifact. The best possible images were obtained. Small bilateral pleural effusions. Adjacent airspace disease mostly compressive atelectasis. No acute intra-abdominal process is seen.. Chest CT 04/20/20 01:12 IMPRESSION: Artifact from the patient's arms. Imaging is degraded by patient motion, with resultant artifact. The best possible images were obtained. Small bilateral pleural effusions. Adjacent airspace disease mostly compressive atelectasis. No acute intra-abdominal process is seen.. Chest X-Ray 04/23/20 00:00 IMPRESSION: CARDIAC ENLARGEMENT. VASCULAR CONGESTION. Plan Discharge Plan: Spoke with Dr. John, [facility], who has graciously agreed to accept the patient. 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 The patient may also benefit from availability of in-house Infectious Disease (e. coli bacteremia) and GI (elevated T. bili and enlargement of common bile duct). Discussed transfer with family (Afsaneh Justice, daughter) who is strongly supportive of plan. Time Spent: Greater than 30 Minutes
[2020-04-23] MEDS ORDERED: WARFARIN SODIUM 2.5 MG TABLET PO SCH (22:00)
[2020-04-23] MEDS ORDERED: FUROSEMIDE INJ/PF 20 MG/2 ML SDV IV SCH (22:00)
[2020-04-23] MEDS ORDERED: WARFARIN SODIUM 2 MG TABLET PO SCH (22:00)
[2020-04-23] MEDS ORDERED: CEFTRIAXONE 2 GM/D5W RTU 2 GM/50 ML RTUPB IV SCH (22:00)
[2020-04-24 01:49] VITALS: BP 122/59
== END 2020-04-23 19:30 | disposition short-term general hospital (02) | DRG 193 ==
LOC: ER 22:20 → EH 04-20 04:45 → 3N 04-20 06:45
PROVIDERS: ADMIT Internal Medicine; ATTEND Registered Nurse
DX: J18.9 Pneumonia, unspecified organism (principal); I50.43 Acute on chronic combined systolic (congestive) and diastolic (congestive) heart failure; R78.81 Bacteremia; Q61.01 Congenital single renal cyst; G93.40 Encephalopathy, unspecified; I48.20 Chronic atrial fibrillation, unspecified; I11.0 Hypertensive heart disease with heart failure; E11.9 Type 2 diabetes mellitus without complications; E03.9 Hypothyroidism, unspecified; F03.90 Unspecified dementia, unspecified severity, without behavioral disturbance, psychotic disturbance, mood disturbance, and anxiety; Z60.2 Problems related to living alone; I48.91 Unspecified atrial fibrillation; D50.9 Iron deficiency anemia, unspecified; B96.20 Unspecified Escherichia coli [E. coli] as the cause of diseases classified elsewhere; E78.5 Hyperlipidemia, unspecified; E78.00 Pure hypercholesterolemia, unspecified; Z79.01 Long term (current) use of anticoagulants; Z79.890 Hormone replacement therapy; Z79.899 Other long term (current) drug therapy; Z88.8 Allergy status to other drugs, medicaments and biological substances; Z95.0 Presence of cardiac pacemaker; Z96.651 Presence of right artificial knee joint; Z86.14 Personal history of Methicillin resistant Staphylococcus aureus infection; Z82.49 Family history of ischemic heart disease and other diseases of the circulatory system
CPT/HCPCS: 36415; 51701; 70450; 71045; 71260; 74177; 76705; 80048; 80053; 80076; 80162; 81001; 82140; 82550; 82553; 82607; 82728; 82746; 82803; 82962; 83036; 83540; 83550; 83605; 83690; 83880; 84466; 84484; 85025; 85027; 85045; 85610; 87040; 87045; 87077; 87086; 87150; 87186; 87205; 87324; 87449; 87635; 89055; 93005; 93010; 93306; 94640; 94667; 94668; 94799; 96365; 96367; 99285; C9803; J0456; J0696; J1815; J1940; J3490; J7030; J7060; J7620